=== PATIENT | male | born 1955 | race Caucasian/White ===

== ENCOUNTER → 2017-08-18 | Outpatient (CLI) | payer BC ==
[2017-08-18 09:21] LABS: Basophils # (A) 0.1 k/uL (0-0.2); Basophils % (A) 1 %; Eosinophils # (A) 0.3 k/uL (0-0.7); Eosinophils % (A) 5 %; HCT 45.8 % (39.0-53.0); HGB 15.9 gm/dL (13.0-17.5); Lymphocytes # (A) 2.1 k/uL (1.0-4.8); Lymphocytes % (A) 40 %; MCH 29.4 pg (25.0-35.0); MCHC 34.7 g/dL (31.0-37.0); MCV 84.5 fL (80.0-100.0); Mean Platelet Volume 7.2; Monocytes # (A) 0.4 k/uL (0-1.0); Monocytes % (A) 9 %; Neutrophils # (A) 2.1 k/uL (1.3-7.7); Neutrophils % (A) 41 %; Platelet Count 199 k/uL (150-450); RBC 5.42 m/uL (4.30-5.90); RDW 13.1 % (11.5-15.5); WBC 5.2 k/uL (3.8-10.6)
[2017-08-18 09:33] LABS: Albumin 4.4 g/dL (3.5-5.0); Calcium 9.8 mg/dL (8.4-10.2); Potassium 4.4 mmol/L (3.5-5.1); Total Bilirubin 0.6 mg/dL (0.2-1.3); Total Protein 7.4 g/dL (6.3-8.2)
[2017-08-18 09:49] LABS: T4, Free (Free Thyroxine) 0.86 ng/dL (0.78-2.19)
--- NOTE | 2017-08-18 10:19 | US ---
EXAMINATION TYPE: US kidneys/renal and bladder DATE OF EXAM: 08/18/2017 COMPARISON: NONE CLINICAL HISTORY: Chronic Kidney Stage 3 N18.3. EXAM MEASUREMENTS: Right Kidney: 10.5 x 5.3 x 5.6 cm Left Kidney: 10.9 x 6.3 x 5.0 cm Post Void Residual Volume: 14.95 mL Right Kidney: No hydronephrosis or masses seen Left Kidney: No hydronephrosis or masses seen Bladder: wnl Bilateral Jets seen: Yes Normal Post Void Residual: Yes IMPRESSION: 1. Normal renal ultrasound
[2017-08-18 10:44] LABS: Appearance,Urine Clear (Clear); Bilirubin,Urine Negative (Negative); Blood,Urine Negative (Negative); Color,Urine Colorless; Glucose,Urine (UA) Negative (Negative); Ketones,Urine Negative (Negative); Leukocyte Esterase,Urine Negative (Negative); Nitrite,Urine Negative (Negative); Protein,Urine Negative (Negative); Specific Gravity,Urine 1.002 (1.001-1.035); Urobilinogen,Urine <2.0 mg/dL (<2.0)
[2017-08-18 17:40] LABS: Hemoglobin A1C 5.1 % (4.0-6.0)
== END | disposition home or self-care (01) ==
LOC: RADUSWWP 08:29
PROVIDERS: ATTEND Family Medicine
DX: N18.3 Chronic kidney disease, stage 3 (moderate) (principal); N40.0 Benign prostatic hyperplasia without lower urinary tract symptoms; E78.2 Mixed hyperlipidemia
CPT/HCPCS: 36415; 76770; 80053; 80061; 81003; 82550; 82607; 83036; 83735; 84439; 84443; 85025

== ENCOUNTER 2020-08-09 15:36 | Inpatient (IN) | payer BC, MEDICARE ==
[2020-08-09] MEDS ORDERED: DEXAMETHASONE SOD PHOSPHATE 10 MG/ML 1 ML VIAL IV STA (15:45)
[2020-08-09] MEDS ORDERED: ACETAMINOPHEN TAB 500 MG TAB PO STA (16:04)
--- NOTE | 2020-08-09 16:23 | ED ---
General Adult HPI - General Chief complaint: Shortness of Breath Stated complaint: Shortness of Breath Time Seen by Provider: 08/09/20 15:38 Source: patient Mode of arrival: EMS Limitations: no limitations - History of Present Illness Initial comments: Dictation was produced using [employer] dictation software. please excuse any grammatical, word or spelling errors. This patient was cared for during a federal and state declared state of emergency secondary to Covid 19 Chief Complaint: 65-year-old male with no significant past medical history presents to the emergency department for covid symptoms History of Present Illness: 65-year-old male. For the last 10 days patient has been having Covid 19-type symptoms. Patient states that he has some shortness of breath generalized weakness and constitutional symptoms. He has no medical comorbidities. He does not take any medications on a regular basis. He is not sure how he got the disease. He has no pain complaints. EMS was called and noted that he was hypoxic. He was placed on supplemental oxygen. Patient does not use home O2. The ROS documented in this emergency department record has been reviewed and confirmed by me. Those systems with pertinent positive or negative responses have been documented in the HPI. All other systems are other negative and/or noncontributory. PHYSICAL EXAM: General Impression: Alert and oriented x3, not in acute distress HEENT: Normocephalic atraumatic, extra-ocular movements intact, pupils equal and reactive to light bilaterally, mucous membranes moist. Cardiovascular: Heart regular rate and rhythm Chest: Able to complete full sentences, no retractions, no tachypnea Abdomen: abdomen soft, non-tender, non-distended, no organomegaly Musculoskeletal: Pulses present and equal in all extremities, no peripheral edema Motor: no focal deficits noted Neurological: CN II-XII grossly intact, no focal motor or sensory deficits noted Skin: Intact with no visualized rashes Psych: Normal affect and mood ED course: 65-year-old male presents to the emergency department for clinical presentation consistent with Covid 19. He is hypoxic. As upon arrival shows 87% on room air while at rest. Temperature is 103.3. EKG interpretation: Ventricular rate 81, normal sinus rhythm, NE interval 150, QRS 90, QTC 418. No NE prolongation, no QTC prolongation, no EKG for comparison. There are T-wave inversions in lead 3 and aVF. Overall this EKG is nonspecific. Laboratory evaluation obtained. No leukocytosis. Lymphocyte opinions 0.7. Coag panel is negative. D-dimer is 1.01. Metabolic panel shows findings within acceptable range. Coronavirus test is positive. X-ray and CT angios the chest shows no signs of pulmonary embolus however there is diffuse bilateral patchy ground glass opacities consistent with Covid pneumonia. he'll be admitted to the hospital. He requires supplemental oxygen. Case was discussed with Dr. Spangler of [facility] who is willing to accept patients care. Patient is well-appearing and satting well with 2 L nasal cannula while at rest. - Related Data Home Medications Medication Instructions Recorded Confirmed No Known Home Medications 08/09/20 08/09/20 Allergies Allergy/AdvReac Type Severity Reaction Status Date / Time No Known Allergies Allergy Verified 08/09/20 17:07 Review of Systems ROS Statement: Those systems with pertinent positive or pertinent negative responses have been documented in the HPI. ROS Other: All systems not noted in ROS Statement are negative. Past Medical History Past Medical History: No Reported History History of Any Multi-Drug Resistant Organisms: None Reported Past Surgical History: Orthopedic Surgery Additional Past Surgical History / Comment(s): bilateral knee surgery Past Psychological History: No Psychological Hx Reported Smoking Status: Never smoker Past Alcohol Use History: None Reported Past Drug Use History: None Reported General Exam Limitations: no limitations Course Vital Signs 08/09/20 08/09/20 08/09/20 15:39 16:00 17:00 Temperature 103.3 F H Pulse Rate 81 77 73 Respiratory 24 24 24 Rate Blood Pressure 127/80 121/81 123/82 O2 Sat by Pulse 87 L 93 L 95 Oximetry 08/09/20 17:38 Temperature 99.5 F Pulse Rate Respiratory Rate Blood Pressure O2 Sat by Pulse Oximetry Medical Decision Making - Lab Data Result diagrams: 08/09/20 16:17 08/09/20 16:17 Lab Results 08/09/20 08/09/20 08/09/20 Range/Units 16:11 16:17 16:17 WBC 4.6 (3.8-10.6) k/uL RBC 4.84 (4.30-5.90) m/uL Hgb 15.3 (13.0-17.5) gm/dL Hct 41.5 (39.0-53.0) % MCV 85.8 (80.0-100.0) fL MCH 31.7 (25.0-35.0) pg MCHC 36.9 (31.0-37.0) g/dL RDW 12.6 (11.5-15.5) % Plt Count 133 L (150-450) k/uL MPV 8.5 Neutrophils % 81 % Lymphocytes % 14 % Monocytes % 2 % Eosinophils % 0 % Basophils % 0 % Neutrophils # 3.7 (1.3-7.7) k/uL Lymphocytes # 0.7 L (1.0-4.8) k/uL Monocytes # 0.1 (0-1.0) k/uL Eosinophils # 0.0 (0-0.7) k/uL Basophils # 0.0 (0-0.2) k/uL PT 10.0 (9.0-12.0) sec INR 0.9 (<1.2) APTT 26.1 (22.0-30.0) sec D-Dimer 1.01 H (<0.60) mg/L FEU Sodium (137-145) mmol/L Potassium (3.5-5.1) mmol/L Chloride (98-107) mmol/L Carbon Dioxide (22-30) mmol/L Anion Gap mmol/L BUN (9-20) mg/dL Creatinine (0.66-1.25) mg/dL Est GFR (CKD-EPI)AfAm (>60 ml/min/1.73 sqM) Est GFR (CKD-EPI)NonAf (>60 ml/min/1.73 sqM) Glucose (74-99) mg/dL Plasma Lactic Acid Sampson (0.7-2.0) mmol/L Calcium (8.4-10.2) mg/dL Magnesium (1.6-2.3) mg/dL Total Bilirubin (0.2-1.3) mg/dL AST (17-59) U/L ALT (4-49) U/L Alkaline Phosphatase (38-126) U/L Troponin I (0.000-0.034) ng/mL C-Reactive Protein (<10.0) mg/L Total Protein (6.3-8.2) g/dL Albumin (3.5-5.0) g/dL Coronavirus (PCR) Detected A (Not Detectd) 08/09/20 08/09/20 08/09/20 Range/Units 16:17 16:17 16:17 WBC (3.8-10.6) k/uL RBC (4.30-5.90) m/uL Hgb (13.0-17.5) gm/dL Hct (39.0-53.0) % MCV (80.0-100.0) fL MCH (25.0-35.0) pg MCHC (31.0-37.0) g/dL RDW (11.5-15.5) % Plt Count (150-450) k/uL MPV Neutrophils % % Lymphocytes % % Monocytes % % Eosinophils % % Basophils % % Neutrophils # (1.3-7.7) k/uL Lymphocytes # (1.0-4.8) k/uL Monocytes # (0-1.0) k/uL Eosinophils # (0-0.7) k/uL Basophils # (0-0.2) k/uL PT (9.0-12.0) sec INR (<1.2) APTT (22.0-30.0) sec D-Dimer (<0.60) mg/L FEU Sodium 132 L (137-145) mmol/L Potassium 4.7 (3.5-5.1) mmol/L Chloride 99 (98-107) mmol/L Carbon Dioxide 27 (22-30) mmol/L Anion Gap 6 mmol/L BUN 31 H (9-20) mg/dL Creatinine 1.35 H (0.66-1.25) mg/dL Est GFR (CKD-EPI)AfAm 63 (>60 ml/min/1.73 sqM) Est GFR (CKD-EPI)NonAf 54 (>60 ml/min/1.73 sqM) Glucose 102 H (74-99) mg/dL Plasma Lactic Acid Sampson 0.9 (0.7-2.0) mmol/L Calcium 8.3 L (8.4-10.2) mg/dL Magnesium 2.3 (1.6-2.3) mg/dL Total Bilirubin 0.8 (0.2-1.3) mg/dL AST 62 H (17-59) U/L ALT 26 (4-49) U/L Alkaline Phosphatase 41 (38-126) U/L Troponin I 0.017 (0.000-0.034) ng/mL C-Reactive Protein 57.2 H (<10.0) mg/L Total Protein 6.5 (6.3-8.2) g/dL Albumin 3.6 (3.5-5.0) g/dL Coronavirus (PCR) (Not Detectd) Disposition Clinical Impression: COVID-19, Hypoxia Disposition: ADMITTED IP TO THIS HOSP Condition: Fair Decision Time: 18:14
[2020-08-09 16:26] LABS: Basophils % (A) 0 %; Eosinophils % (A) 0 %; HCT 41.5 % (39.0-53.0); HGB 15.3 gm/dL (13.0-17.5); Lymphocytes # (A) 0.7 k/uL (1.0-4.8); Lymphocytes % (A) 14 %; MCH 31.7 pg (25.0-35.0); MCHC 36.9 g/dL (31.0-37.0); MCV 85.8 fL (80.0-100.0); Mean Platelet Volume 8.5; Monocytes # (A) 0.1 k/uL (0-1.0); Monocytes % (A) 2 %; Neutrophils # (A) 3.7 k/uL (1.3-7.7); Neutrophils % (A) 81 %; Platelet Count 133 k/uL (150-450); RBC 4.84 m/uL (4.30-5.90); RDW 12.6 % (11.5-15.5); WBC 4.6 k/uL (3.8-10.6)
[2020-08-09 16:41] LABS: Albumin 3.6 g/dL (3.5-5.0); C Reactive Protein 57.2 mg/L (<10.0); Calcium 8.3 mg/dL (8.4-10.2); Magnesium 2.3 mg/dL (1.6-2.3); Potassium 4.7 mmol/L (3.5-5.1); Total Bilirubin 0.8 mg/dL (0.2-1.3); Total Protein 6.5 g/dL (6.3-8.2)
--- NOTE | 2020-08-09 16:42 | XR ---
EXAMINATION TYPE: XR chest 1V portable DATE OF EXAM: 08/09/2020 COMPARISON: NONE HISTORY: Shortness of breath. TECHNIQUE: Single frontal view of the chest is obtained. FINDINGS: Bilateral diffuse moderate patchy opacities. No pleural effusion, or pneumothorax seen. T he cardiac silhouette size is within normal limits. The osseous structures are intact. IMPRESSION: Bilateral infiltrates.
[2020-08-09 16:54] LABS: INR 0.9 (<1.2); Partial Thromboplastin Time 26.1 sec (22.0-30.0)
[2020-08-09 16:56] LABS: D-Dimer 1.01 mg/L FEU (<0.60)
[2020-08-09] MEDS ORDERED: ACETAMINOPHEN TAB 325 MG TAB PO PRN (17:45)
[2020-08-09] MEDS ORDERED: ONDANSETRON 4 MG/2 ML VIAL IVP PRN (17:45)
[2020-08-09] MEDS ORDERED: NALOXONE 0.4 MG/ML 1 ML VIAL IV PRN ×2 (17:45→18:38)
--- NOTE | 2020-08-09 17:51 | CT ---
EXAMINATION TYPE: CT angio chest DATE OF EXAM: 08/09/2020 5:39 PM COMPARISON: Same-day radiograph. HISTORY: Positive d-dimer, Covid +. SOB. CT DLP: 341.9 mGycm Automated exposure control for dose reduction was used. CONTRAST: CTA scan of the thorax is performed with IV Contrast, patient injected with 80 mL of Isovue 370, pulm onary embolism protocol. MIP images are created and reviewed. FINDINGS: LUNGS: There are bilateral diffuse moderate to marked patchy groundglass opacities. No pleural effusi on or pneumothorax. There is an incidental 4 mm right middle lobe nodule. MEDIASTINUM: There is satisfactory enhancement of the pulmonary artery and its branches, there is no CT evidence for pulmonary embolism. There are scattered borderline to mildly enlarged mediastinal an d hilar lymph nodes, may be reactive. Mild cardiomegaly without pericardial effusion is seen. OTHER: No additional significant abnormality is seen. IMPRESSION: BILATERAL DIFFUSE PATCHY GROUND GLASS OPACITIES, CONSISTENT WITH HISTORY OF COVID PNEUMONIA. INCIDENTAL 4 MM RIGHT MIDDLE LOBE NODULE. ATTENTION ON FOLLOW-UP. NO ACUTE PE.
[2020-08-09] MEDS ORDERED: SODIUM CHLORIDE 0.9% 1,000 ML IV STA (18:42)
--- NOTE | 2020-08-09 18:42 | P.HPIM ---
History of Present Illness H&P Date: 08/09/20 Chief Complaint: weakness 65-year-old male with no significant past medical history presents to the emergency department for sob, general weakness, fatigue, fever and chills. Symptoms started 1 week ago. His is sick with covid. He has no medical comorbidities. He does not take any medications on a regular basis. No pain. EMS was called and noted that he was hypoxic. He was placed on supplemental oxygen. Patient does not use home O2. Evaluation in the ER showed sats 87% on room air while at rest. Temperature was 103.3. Labs showed no leukocytosis. Lymphopenia 0.7. Coag panel is negative. Metabolic panel shows findings within acceptable range. Coronavirus test is positive. X-ray and CT angios the chest shows no signs of pulmonary embolus however there is diffuse bilateral patchy ground glass opacities consistent with Covid pneumonia. He is currently well-appearing and satting well with 2 L nasal cannula while at rest. Review of Systems complete review of system performed, pertinent positives per HPI otherwise negative Past Medical History Past Medical History: No Reported History History of Any Multi-Drug Resistant Organisms: None Reported Past Surgical History: Orthopedic Surgery Additional Past Surgical History / Comment(s): bilateral knee surgery Past Psychological History: No Psychological Hx Reported Smoking Status: Never smoker Past Alcohol Use History: None Reported Past Drug Use History: None Reported Medications and Allergies Home Medications Medication Instructions Recorded Confirmed Type No Known Home Medications 08/09/20 08/09/20 History Allergies Allergy/AdvReac Type Severity Reaction Status Date / Time No Known Allergies Allergy Verified 08/09/20 17:07 Physical Exam Vitals: Vital Signs Temp Pulse Resp BP Pulse Ox 08/09/20 17:38 99.5 F 08/09/20 17:00 73 24 123/82 95 08/09/20 16:00 77 24 121/81 93 L 08/09/20 15:39 103.3 F H 81 24 127/80 87 L Intake and Output 08/09/20 08/09/20 08/09/20 06:59 14:59 22:59 Other: Weight 80.739 kg Constitutional: No acute distress, conversant, pleasant Eyes:Anicteric sclerae, moist conjunctiva, no lid-lag, PERRLA, ENMT: Oropharynx clear, no erythema, exudates Neck: Supple, FROM, no masses, or JVD, No carotid bruits, No thyromegaly Lungs: Clear to auscultation, Clear to percussion, Normal respiratory effort, no accessory muscle use Cardiovascular: Heart regular in rate and rhythm, No murmurs, gallops, or rubs, No peripheral edema Abdominal: Soft, Nontender, no guarding, rebound or rigidity, Normoactive bowel sounds, No hepatomegaly, No splenomegaly, No palpable mass Skin: Normal temperature, tone, texture, turgor, no induration, No subcutaneous nodules, No rash, lesions, No ulcers Extremities: No digital cyanosis, No clubbing, Pedal pulses intact and symmetrical, Radial pulses intact and symmetrical, No calf tenderness Psychiatric: Alert and oriented to person, place and time, appropriate affect, intact judgement Neuro: Muscles Strength 5/5 in all 4 extremities, Sensation to light touch grossly present throughout, Cranial nerves II-XII grossly intact, no focal sensory deficits Results CBC & Chem 7: 08/09/20 16:17 08/09/20 16:17 Labs: Abnormal Lab Results - Last 24 Hours (Table) 08/09/20 08/09/20 08/09/20 Range/Units 16:11 16:17 16:17 Plt Count 133 L (150-450) k/uL Lymphocytes # 0.7 L (1.0-4.8) k/uL D-Dimer 1.01 H (<0.60) mg/L FEU Sodium (137-145) mmol/L BUN (9-20) mg/dL Creatinine (0.66-1.25) mg/dL Glucose (74-99) mg/dL Calcium (8.4-10.2) mg/dL AST (17-59) U/L C-Reactive Protein (<10.0) mg/L Coronavirus (PCR) Detected A (Not Detectd) 08/09/20 Range/Units 16:17 Plt Count (150-450) k/uL Lymphocytes # (1.0-4.8) k/uL D-Dimer (<0.60) mg/L FEU Sodium 132 L (137-145) mmol/L BUN 31 H (9-20) mg/dL Creatinine 1.35 H (0.66-1.25) mg/dL Glucose 102 H (74-99) mg/dL Calcium 8.3 L (8.4-10.2) mg/dL AST 62 H (17-59) U/L C-Reactive Protein 57.2 H (<10.0) mg/L Coronavirus (PCR) (Not Detectd) Assessment and Plan Plan: Acute covid pneumonia Start decadron 6mg IV daily Pulm consult Decision regarding other treatments according to pulm consult Acute hypoxic respiratory failure Sec to above Currently doing well on NC Monitor pulse ox Acute sepsis Sec to covid IV fluids Lactic acid check Hyponatremia and JAVED Likely sec to dehydration and covid IV fluids DVT prophylaxis Lovenox s.q Admitted to inpatient expected length of stay more than 2 midnights.
[2020-08-09] MEDS: SODIUM CHLORIDE 0.9% 1,000 ML IV SCH (20:14)
[2020-08-09] MEDS: ENOXAPARIN 40 MG/0.4 ML SYRINGE SQ SCH (21:16)
[2020-08-10 08:45] LABS: HCT 45.4 % (39.6-50.0); MCH 29.9 pg (27.0-32.0); MCV 90.4 fL (80.0-97.0); Mean Platelet Volume 11.8 fL (9.5-12.2); Platelet Count 142 X 10*3/uL (140-440); RBC 5.02 X 10*6/uL (4.40-5.60); RDW 12.9 % (11.5-14.5); WBC 3.69 X 10*3/uL (4.50-10.00)
[2020-08-10 09:15] LABS: African American GFR (CKD) 47.6 (60.0-200.0); Albumin 3.8 g/dL (3.80-4.90); Albumin/Globulin Ratio 1.46 (1.60-3.17); Anion Gap 7.9 mmol/L (4.00-12.00); BUN/Creat Ratio 26.47 Ratio (12.00-20.00); Calcium 8.6 mg/dL (8.7-10.3); Carbon Dioxide 28.1 mmol/L (21.6-31.8); Globulin 2.6 g/dL (1.6-3.3); Non-African American GFR(CKD) 41.1 (60.0-200.0); Phosphorus 6.7 mg/dL (2.4-5.1); Potassium 5.2 mmol/L (3.5-5.5); Total Bilirubin 0.8 mg/dL (0.3-1.2); Total Protein 6.4 g/dL (6.2-8.2)
[2020-08-10] MEDS: PANTOPRAZOLE 40 MG/10 ML VIAL IV SCH (10:29)
[2020-08-10] MEDS: DEXAMETHASONE SOD PHOSPHATE 10 MG/ML 1 ML VIAL IV SCH (10:31)
[2020-08-10] MEDS: ENOXAPARIN 40 MG/0.4 ML SYRINGE SQ SCH (10:33)
[2020-08-10 10:47] LABS: Basophils # (A) 0.01 X 10*3/uL (0.00-0.10); Basophils % (A) 0.3 %; Eosinophils # (A) 0 X 10*3/uL (0.04-0.35); Eosinophils % (A) 0 %; Lymphocytes # (A) 0.87 X 10*3/uL (0.90-5.00); Lymphocytes % (A) 23.6 %; Monocytes # (A) 0.11 X 10*3/uL (0.20-1.00); Neutrophils # (A) 2.67 X 10*3/uL (1.80-7.70); Neutrophils % (A) 72.3 %
--- NOTE | 2020-08-10 11:24 | P.CNPUL ---
History of Present Illness Consult date: 08/10/20 Requesting physician: Lauren Howell Reason for consult: dyspnea (Continue S), cough, hypoxemia, pneumonia, abnormal CXR/CT Chief complaint: Anorexia, fatigue, joint pain, weakness, shortness of breath. History of present illness: This is a 65-year-old male, there hasn't been feeling well for at least 2 weeks. He complains initially of fatigue, weakness, joint pain, and anorexia. The pa tient is awake, he is complaining about being short of breath. The patient's appetite has been poor. He has not been really eating or drinking very much at all. The patient was in ER, room #1 when I saw him. He was not receiving any IV fluids. He was on O2 at 3 L by nasal cannula. Again not receiving any IV fluids. Used to see a doctor in the area but has not seen a doctor for some time. He is otherwise pretty healthy. He was seen in the emergency room by Dr. Elena. White count was 3.69, hemoglobin 15, hematocrit 45.4, and platelet count 142,000. D-dimer was 1.01. PT, INR, and PTT were normal. Sodium 133, potassium 5.2, chloride 97, CO2 28, anion gap 8, BUN 45, and creatinine 1.7. The patient's C-reactive protein was 57.2. He tested positive for calvillo virus on August 09. Chest x-ray showed bilateral multifocal infiltrates consistent with the diagnosis of COVID 19 pneumonia. Computed tomography scan showed typical findings with diffuse bilateral groundglass opacities. There was no acute pulmonary embolism. Review of Systems REVIEW OF SYSTEMS: CONSTITUTIONAL: Fatigue, weakness, joint pain, anorexia, decreased appetite. Also fever. NEUROLOGIC: [ Negative.] HEENT: [ Negative.] CARDIAC: Shortness of breath. Nonproductive cough. PULMONARY: Shortness of breath. Nonproductive cough. GI: Anorexia with decreased oral intake. : [Negative.] RHEUMATOLOGIC: [ Negative.] IMMUNOLOGIC: [ Negative.] ENDOCRINE: [Negative. ] DERMATOLOGIC: [Negative.] Past Medical History Past Medical History: No Reported History History of Any Multi-Drug Resistant Organisms: None Reported Past Surgical History: Orthopedic Surgery Additional Past Surgical History / Comment(s): bilateral knee surgery Past Psychological History: No Psychological Hx Reported Smoking Status: Never smoker Past Alcohol Use History: None Reported Past Drug Use History: None Reported Medications and Allergies Home Medications Medication Instructions Recorded Confirmed Type No Known Home Medications 08/09/20 08/09/20 History Allergies Allergy/AdvReac Type Severity Reaction Status Date / Time No Known Allergies Allergy Verified 08/09/20 17:07 Physical Exam Osteopathic Statement: *. No significant issues noted on an osteopathic structural exam other than those noted in the History and Physical/Consult. Vitals: Vital Signs Temp Pulse Resp BP Pulse Ox 08/10/20 10:30 65 18 131/90 92 L 08/10/20 06:00 97.7 F 61 20 133/84 92 L 08/10/20 01:00 47 L 24 115/85 92 L 08/09/20 23:00 52 L 20 95/66 92 L 08/09/20 19:00 59 L 18 117/82 93 L 08/09/20 18:00 61 24 113/77 92 L 08/09/20 17:38 99.5 F 08/09/20 17:00 73 24 123/82 95 08/09/20 16:00 77 24 121/81 93 L 08/09/20 15:39 103.3 F H 81 24 127/80 87 L Intake and Output 08/09/20 08/10/20 08/10/20 22:59 06:59 14:59 Other: Weight 80.739 kg No acute distress, oriented 3. Currently on 3 L nasal cannula. No audible wheezing or use of accessory muscles. HEENT examination is grossly unremarkable. Mucous membranes are moist. No oral lesions. Neck supple. Full range of motion. No adenopathy thyromegaly or neck vein distention. Cardiovascular examination reveals regular rhythm rate. S1-S2 normal. No S3 or S4. No discernible murmur noted. Heart rate 65 bpm. Lungs reveal bilateral coarse rhonchi. Bibasilar crackles appreciated. No wheezes. Breath sounds equal bilaterally. Abdomen soft bowel sounds are heard. No masses or tenderness. Extremities are intact. No cyanosis clubbing or edema. Skin is without rash or lesion. Neurologic examination is brief but nonfocal. Results - Laboratory Findings CBC and BMP: 08/10/20 05:15 08/10/20 05:15 PT/INR, D-dimer PT 10.0 sec (9.0-12.0) 08/09/20 16:17 INR 0.9 (<1.2) 08/09/20 16:17 D-Dimer 1.01 mg/L FEU (<0.60) H 08/09/20 16:17 Abnormal lab findings: Abnormal Labs 08/09/20 08/09/20 08/09/20 16:11 16:17 16:17 WBC Plt Count 133 L Lymphocytes # 0.7 L Monocytes # Eosinophils # D-Dimer 1.01 H Sodium BUN Creatinine Est GFR (CKD-EPI)AfAm Est GFR (CKD-EPI)NonAf BUN/Creatinine Ratio Glucose Calcium Phosphorus Magnesium AST Alkaline Phosphatase C-Reactive Protein Albumin/Globulin Ratio Coronavirus (PCR) Detected A 08/09/20 08/10/20 08/10/20 16:17 05:15 05:15 WBC 3.69 L Plt Count Lymphocytes # 0.87 L Monocytes # 0.11 L Eosinophils # 0 L D-Dimer Sodium 132 L 133 L BUN 31 H 45.0 H Creatinine 1.35 H 1.7 H Est GFR (CKD-EPI)AfAm 47.6 L Est GFR (CKD-EPI)NonAf 41.1 L BUN/Creatinine Ratio 26.47 H Glucose 102 H 133 H Calcium 8.3 L 8.6 L Phosphorus 6.7 H Magnesium 3.0 H AST 62 H 50 H Alkaline Phosphatase 37 L C-Reactive Protein 57.2 H Albumin/Globulin Ratio 1.46 L Coronavirus (PCR) - Diagnostic Findings Chest x-ray: image reviewed CT scan - chest: image reviewed Assessment and Plan Assessment: Acute hypoxemic respiratory failure secondary to COVID 19 pneumonia/pneumonitis. Prior history of bilateral knee surgery. Lifelong nonsmoker. No other significant medical history. Plan: Plan dated 08/10/2020. The patient should be on Decadron, 6 mg daily for a total of 10 days. He is outside the window for REM. The patient also should be receiving vitamin C, vitamin D3, and zinc. Additional recommendations and suggestions are forthcoming. Finally, the patient should get Lovenox. Repeat chest x-ray and inflammatory markers should be done about every 2 or 3 days. We will continue to follow the patient closely and make recommendations were appropriate. Prognosis is guarded. His chest x-ray and computed tomography scan look much worse and the patient looks clinically. Time with Patient: Greater than 30
--- NOTE | 2020-08-10 16:48 | P.PN ---
Subjective Progress Note Date: 08/10/20 Principal diagnosis: sob Patient is still hypoxic, still requiring 2 L of nasal cannula, sats are currently in the lower 90s on the oxygen. He is feeling better overall. No nausea or vomiting. No fevers. Objective - Vital Signs Vital signs: Vital Signs Temp 97.7 F 08/10/20 06:00 Pulse 65 08/10/20 10:30 Resp 18 08/10/20 10:30 BP 131/90 08/10/20 10:30 Pulse Ox 92 L 08/10/20 10:30 Intake & Output 08/09/20 08/10/20 08/10/20 18:59 06:59 18:59 Weight 80.739 kg - Exam Constitutional: No acute distress, conversant, pleasant Eyes:Anicteric sclerae, moist conjunctiva, no lid-lag, PERRLA, ENMT: Oropharynx clear, no erythema, exudates Neck: Supple, FROM, no masses, or JVD, No carotid bruits, No thyromegaly Lungs: Clear to auscultation, Clear to percussion, Normal respiratory effort, no accessory muscle use Cardiovascular: Heart regular in rate and rhythm, No murmurs, gallops, or rubs, No peripheral edema Abdominal: Soft, Nontender, no guarding, rebound or rigidity, Normoactive bowel sounds, No hepatomegaly, No splenomegaly, No palpable mass Skin: Normal temperature, tone, texture, turgor, no induration, No subcutaneous nodules, No rash, lesions, No ulcers Extremities: No digital cyanosis, No clubbing, Pedal pulses intact and sym metrical, Radial pulses intact and symmetrical, No calf tenderness Psychiatric: Alert and oriented to person, place and time, appropriate affect, intact judgement Neuro: Muscles Strength 5/5 in all 4 extremities, Sensation to light touch grossly present throughout, Cranial nerves II-XII grossly intact, no focal sensory deficits - Labs CBC & Chem 7: 08/10/20 05:15 08/10/20 05:15 Labs: Abnormal Lab Results - Last 24 Hours (Table) 08/09/20 08/10/20 08/10/20 Range/Units 16:17 05:15 05:15 WBC 3.69 L (4.50-10.00) X 10*3/uL Lymphocytes # 0.87 L (0.90-5.00) X 10*3/uL Monocytes # 0.11 L (0.20-1.00) X 10*3/uL Eosinophils # 0 L (0.04-0.35) X 10*3/uL D-Dimer 1.01 H (<0.60) mg/L FEU Sodium 133 L (135-145) mmol/L BUN 45.0 H (9.0-27.0) mg/dL Creatinine 1.7 H (0.6-1.5) mg/dL Est GFR (CKD-EPI)AfAm 47.6 L (60.0-200.0) Est GFR (CKD-EPI)NonAf 41.1 L (60.0-200.0) BUN/Creatinine Ratio 26.47 H (12.00-20.00) Ratio Glucose 133 H (70-110) mg/dL Calcium 8.6 L (8.7-10.3) mg/dL Phosphorus 6.7 H (2.4-5.1) mg/dL Magnesium 3.0 H (1.5-2.4) mg/dL AST 50 H (14-35) U/L Alkaline Phosphatase 37 L (41-126) U/L Albumin/Globulin Ratio 1.46 L (1.60-3.17) g/dL Assessment and Plan Plan: Acute covid pneumonia Continue decadron 6mg IV daily Pulm following Decision regarding other treatments according to pulm consult Acute hypoxic respiratory failure Sec to above Currently doing well on NC Monitor pulse ox Acute sepsis Sec to covid IV fluids Lactic acid okay Hyponatremia and JAVED Likely sec to dehydration and covid IV fluids DVT prophylaxis Lovenox s.q Anticipated discharge: 2-3 days Disposition: Home
--- NOTE | 2020-08-10 20:42 | P.EN ---
Informed by the RN that the patient wishes to leave AMA. Patient seen at the bedside. He notes that he hasn't been able to get a restful night sleep at the hospital and wishes to sleep in his bed at home. He notes that he has a pulse-ox at home and that he will monitor his SpO2 levels closely. He also notes he will take the full course of the Dexamethasone. Discussed the risks of leaving AMA in great detail. The patient verbalized understanding and signed the paperwork and left AMA.
[2020-08-10] MEDS ORDERED: MELATONIN 5 MG TABLET PO PRN (21:17)
[2020-08-10] MEDS: SODIUM CHLORIDE 0.9% 1,000 ML IV SCH (22:17)
[2020-08-11] MEDS: DEXAMETHASONE SOD PHOSPHATE 10 MG/ML 1 ML VIAL IV SCH (07:58)
[2020-08-11] MEDS: ENOXAPARIN 40 MG/0.4 ML SYRINGE SQ SCH (07:58)
[2020-08-11] MEDS: ASCORBIC ACID 500 MG TAB PO SCH (07:58)
[2020-08-11] MEDS: PANTOPRAZOLE 40 MG/10 ML VIAL IV SCH (07:58)
[2020-08-11] MEDS: CHOLECALCIFEROL 25 MCG (1000 IU) TABLET PO SCH (07:58)
[2020-08-11] MEDS: ZINC SULFATE 220 MG CAP PO SCH (07:58)
--- NOTE | 2020-08-11 11:27 | P.PN ---
Subjective Progress Note Date: 08/11/20 Principal diagnosis: Shortness of breath. This is a 65-year-old male, there hasn't been feeling well for at least 2 weeks. He complains initially of fatigue, weakness, joint pain, and anorexia. The patient is awake, he is complaining about being short of breath. The patient's appetite has been poor. He has not been really eating or drinking very much at all. The patient was in ER, room #1 when I saw him. He was not receiving any IV fluids. He was on O2 at 3 L by nasal cannula. Again not receiving any IV fluids. Used to see a doctor in the area but has not seen a doctor for some time. He is otherwise pretty healthy. He was seen in the emergency room by Dr. Elena. White count was 3.69, hemoglobin 15, hematocrit 45.4, and platelet count 142,000. D-dimer was 1.01. PT, INR, and PTT were normal. Sodium 133, potassium 5.2, chloride 97, CO2 28, anion gap 8, BUN 45, and creatinine 1.7. The patient's C-reactive protein was 57.2. He tested positive for calvillo virus on August 09. Chest x-ray showed bilateral multifocal infiltrates consistent with the diagnosis of COVID 19 pneumonia. Computed tomography scan showed typical findings with diffuse bilateral groundglass opacities. There was no acute pulmonary embolism. Progress note dated 08/11/2020. 65-year-old male, that we saw yesterday in consultation. He complained of 2 weeks with increasing shortness of breath, fatigue, weakness, joint pain, and anorexia. Currently, the patient's on 4 L nasal cannula. He's not receiving any IV fluids. He is short of breath. He states he feels more short of breath today than he did yesterday. The patient currently does not have a primary care physician. There is no new laboratory data on this patient today. Computed tomography scan showed typical findings with diffuse bilateral groundglass opacities. There is no evidence of pulmonary embolism. Objective - Vital Signs Vital signs: Vital Signs Temp 97.8 F 08/11/20 06:00 Pulse 78 08/11/20 08:03 Resp 18 08/11/20 08:03 BP 114/99 08/11/20 08:03 Pulse Ox 94 L 08/11/20 08:03 - Exam No acute distress, oriented 3. Currently on 4 L nasal cannula. No audible wheezing or use of accessory muscles. HEENT examination is grossly unremarkable. Mucous membranes are moist. No oral lesions. Neck supple. Full range of motion. No adenopathy thyromegaly or neck vein distention. Cardiovascular examination reveals regular rhythm rate. S1-S2 normal. No S3 or S4. No discernible murmur noted. Heart rate 78 bpm. Lungs reveal bilateral coarse rhonchi. Bibasilar crackles appreciated. No wheezes. Breath sounds equal bilaterally. Abdomen soft bowel sounds are heard. No masses or tenderness. Extremities are intact. No cyanosis clubbing or edema. Skin is without rash or lesion. Neurologic examination is brief but nonfocal. - Labs CBC & Chem 7: 08/10/20 05:15 08/10/20 05:15 Assessment and Plan Assessment: Acute hypoxemic respiratory failure secondary to COVID 19 pneumonia/pneumonitis. Prior history of bilateral knee surgery. Lifelong nonsmoker. No other significant medical history. Plan: Plan dated 08/10/2020. The patient should be on Decadron, 6 mg daily for a total of 10 days. He is outside the window for REM. The patient also should be receiving vitamin C, vitamin D3, and zinc. Additional recommendations and suggestions are forthcoming. Finally, the patient should get Lovenox. Repeat chest x-ray and inflammatory markers should be done about every 2 or 3 days. We will continue to follow the patient closely and make recommendations were appropriate. Prognosis is guarded. His chest x-ray and computed tomography scan look much worse and the patient looks clinically. Plan dated 08/11/2020. The patient was outside the window for REM. The patient should be on Decadron 6 mg a day for 10 days. In addition, the patient should receive the usual vitamins, including vitamin C, vitamin D3, and zinc. Finally, the patient should get Lovenox. Clinically, he seems a bit more short of breath s ubjectively today than he did yesterday. The patient's oxygen requirement went up 1 L from yesterday. He's not receiving any IV fluids. Additional recommendations and suggestions are forthcoming. Prognosis is guarded. We will continue to follow this patient with you. Time with Patient: Less than 30
--- NOTE | 2020-08-11 14:34 | P.PN ---
Subjective Progress Note Date: 08/11/20 Principal diagnosis: sob Patient's oxygen requirement went up to 4 L from low flow nasal cannula. He denies any shortness of breath. Has occasional cough. No fevers or chills. Objective - Vital Signs Vital signs: Vital Signs Temp 98.8 F 08/11/20 11:23 Pulse 78 08/11/20 11:23 Resp 18 08/11/20 11:23 BP 122/89 08/11/20 11:23 Pulse Ox 93 L 08/11/20 11:23 - Exam Constitutional: No acute distress, conversant, pleasant Eyes:Anicteric sclerae, moist conjunctiva, no lid-lag, PERRLA, ENMT: Oropharynx clear, no erythema, exudates Neck: Supple, FROM, no masses, or JVD, No carotid bruits, No thyromegaly Lungs: Clear to auscultation, Clear to percussion, Normal respiratory effort, no accessory muscle use Cardiovascular: Heart regular in rate and rhythm, No murmurs, gallops, or rubs, No peripheral edema Abdominal: Soft, Nontender, no guarding, rebound or rigidity, Normoactive bowel sounds, No hepatomegaly, No splenomegaly, No palpable mass Skin: Normal temperature, tone, texture, turgor, no induration, No subcutaneous nodules, No rash, lesions, No ulcers Extremities: No digital cyanosis, No clubbing, Pedal pulses intact and symmetrical, Radial pulses intact and symmetrical, No calf tenderness Psychiatric: Alert and oriented to person, place and time, appropriate affect, intact judgement Neuro: Muscles Strength 5/5 in all 4 extremities, Sensation to light touch grossly present throughout, Cranial nerves II-XII grossly intact, no focal se nsory deficits - Labs CBC & Chem 7: 08/10/20 05:15 08/10/20 05:15 Assessment and Plan Plan: Acute covid pneumonia Continue decadron 6mg IV daily Pulm following Acute hypoxic respiratory failure Sec to above Currently doing well on NC Monitor pulse ox Acute sepsis Sec to covid IV fluids Lactic acid okay Hyponatremia and JAVED Likely sec to dehydration and covid IV fluids DVT prophylaxis Lovenox s.q Anticipated discharge: 2-3 days Disposition: Home
[2020-08-11] MEDS: SODIUM CHLORIDE 0.9% 1,000 ML IV SCH (22:45)
[2020-08-12] MEDS ORDERED: HYDROXYCHLOROQUINE SULFATE 200 MG TAB PO SCH (09:15)
[2020-08-12] MEDS: ASCORBIC ACID 500 MG TAB PO SCH (09:17)
[2020-08-12] MEDS: PANTOPRAZOLE 40 MG/10 ML VIAL IV SCH (09:17)
[2020-08-12] MEDS: amLODIPine 5 MG TAB PO SCH (09:17)
[2020-08-12] MEDS: CHOLECALCIFEROL 25 MCG (1000 IU) TABLET PO SCH (09:17)
[2020-08-12] MEDS: ZINC SULFATE 220 MG CAP PO SCH (09:17)
[2020-08-12] MEDS: DEXAMETHASONE SOD PHOSPHATE 10 MG/ML 1 ML VIAL IV SCH (09:18)
[2020-08-12] MEDS: ENOXAPARIN 40 MG/0.4 ML SYRINGE SQ SCH (09:18)
[2020-08-12] MEDS: ASPIRIN 81 MG PO SCH (09:23)
[2020-08-12 12:49] LABS: Basophils # (A) 0.1 k/uL (0-0.2); Basophils % (A) 1 %; Eosinophils % (A) 0 %; HCT 46.9 % (39.0-53.0); HGB 16.3 gm/dL (13.0-17.5); Lymphocytes # (A) 0.5 k/uL (1.0-4.8); Lymphocytes % (A) 5 %; MCH 30.3 pg (25.0-35.0); MCHC 34.8 g/dL (31.0-37.0); Mean Platelet Volume 8.6; Monocytes # (A) 0.3 k/uL (0-1.0); Monocytes % (A) 3 %; Neutrophils # (A) 8.9 k/uL (1.3-7.7); Neutrophils % (A) 90 %; Platelet Count 188 k/uL (150-450); RBC 5.39 m/uL (4.30-5.90); RDW 12.5 % (11.5-15.5)
[2020-08-12 13:10] LABS: ALT 43 U/L (4-49); AST 85 U/L (17-59); African American GFR (CKD) 78 (>60 ml/min/1.73 sqM); Albumin 3.9 g/dL (3.5-5.0); Albumin/Globulin Ratio 1.2; Alkaline Phosphatase 48 U/L (38-126); Anion Gap 7 mmol/L; Blood Urea Nitrogen 41 mg/dL (9-20); Calcium 8.8 mg/dL (8.4-10.2); Carbon Dioxide 28 mmol/L (22-30); Chloride 101 mmol/L (98-107); Globulin 3.3 g/dL; Glucose 101 mg/dL (74-99); Magnesium 3.1 mg/dL (1.6-2.3); Non-African American GFR(CKD) 68 (>60 ml/min/1.73 sqM); Phosphorus 3.2 mg/dL (2.5-4.5); Potassium 5.4 mmol/L (3.5-5.1); Sodium 136 mmol/L (137-145); Total Bilirubin 0.9 mg/dL (0.2-1.3); Total Protein 7.2 g/dL (6.3-8.2)
[2020-08-12 15:20] VITALS: BMI 26.2
--- NOTE | 2020-08-12 18:09 | P.PN ---
Subjective Progress Note Date: 08/12/20 Principal diagnosis: CoVID 19 pneumonitis This is a 65-year-old male, there hasn't been feeling well for at least 2 weeks. He complains initially of fatigue, weakness, joint pain, and anorexia. The patient is awake, he is complaining about being short of breath. The patient's appetite has been poor. He has not been really eating or drinking very much at all. The patient was in ER, room #1 when I saw him. He was not receiving any IV fluids. He was on O2 at 3 L by nasal cannula. Again not receiving any IV fluids. Used to see a doctor in the area but has not seen a doctor for some time. He is otherwise pretty healthy. He was seen in the emergency room by Dr. Elena. White count was 3.69, hemoglobin 15, hematocrit 45.4, and platelet count 142,000. D-dimer was 1.01. PT, INR, and PTT were normal. Sodium 133, potassium 5.2, chloride 97, CO2 28, anion gap 8, BUN 45, and creatinine 1.7. The patient's C-reactive protein was 57.2. He tested positive for calvillo virus on August 09. Chest x-ray showed bilateral multifocal infiltrates consistent with the diagnosis of COVID 19 pneumonia. Computed tomography scan showed typical findings with diffuse bilateral groundglass opacities. There was no acute pulmonary embolism. Progress note dated 08/11/2020. 65-year-old male, that we saw yesterday in consultation. He complained of 2 weeks with increasing shortness of breath, fatigue, weakness, joint pain, and anorexia. Currently, the patient's on 4 L nasal cannula. He's not receiving any IV fluids. He is short of breath. He states he feels more short of breath today than he did yesterday. The patient currently does not have a primary care physician. There is no new laboratory data on this patient today. Computed tomography scan showed typical findings with diffuse bilateral groundglass opacities. There is no evidence of pulmonary embolism. The patient is seen today 08/12/2020 in follow-up on the regular medical floor. He is currently sitting up in bed. Awake and alert in no acute distress. He is on 6 L high flow nasal cannula and maintaining O2 saturation in the 90s. Doing a bit better today compared to yesterday. Still dyspneic with minimal exertion. He is continued on Decadron, Lovenox, vitamin supplements. Objective - Vital Signs Vital signs: Vital Signs Temp 98.3 F 08/12/20 13:42 Pulse 69 08/12/20 13:42 Resp 18 08/12/20 13:42 BP 130/86 08/12/20 13:42 Pulse Ox 91 L 08/12/20 13:42 Intake & Output 08/11/20 08/12/20 08/12/20 18:59 06:59 18:59 Weight 80.739 kg 80.739 kg Other: # Voids 1 - Exam GENERAL EXAM: Alert, pleasant 65-year-old gentleman, on 6 L high flow nasal symone nia,, comfortable in no apparent distress. HEAD: Normocephalic. EYES: Normal reaction of pupils, equal size. NOSE: Clear with pink turbinates. THROAT: No erythema or exudates. NECK: No masses, no JVD. CHEST: No chest wall deformity. LUNGS: Equal air entry with coarse crackles in the bilateral bases CVS: S1 and S2 normal with no audible murmur, regular rhythm. ABDOMEN: No hepatosplenomegaly, normal bowel sounds, no guarding or rigidity. SPINE: No scoliosis or deformity SKIN: No rashes CENTRAL NERVOUS SYSTEM: No focal deficits, tone is normal in all 4 extremities. EXTREMITIES: There is no peripheral edema. No clubbing, no cyanosis. Peripheral pulses are intact. - Labs CBC & Chem 7: 08/12/20 12:29 08/12/20 12:29 Labs: Abnormal Lab Results - Last 24 Hours (Table) 08/12/20 08/12/20 Range/Units 12:29 12:29 Neutrophils # 8.9 H (1.3-7.7) k/uL Lymphocytes # 0.5 L (1.0-4.8) k/uL Sodium 136 L (137-145) mmol/L Potassium 5.4 H (3.5-5.1) mmol/L BUN 41 H (9-20) mg/dL Glucose 101 H (74-99) mg/dL Magnesium 3.1 H (1.6-2.3) mg/dL AST 85 H (17-59) U/L Assessment and Plan Assessment: 1 Acute hypoxemic respiratory failure secondary to cope in 19 pneumonia/pneumonitis. Outside the window for Remdesivir 2 History of bilateral knee surgery 3 Lifelong nonsmoker. Plan: The patient was seen and evaluated by Dr. Bergman Currently stable and on 6 L nasal cannula Continue Lovenox, Decadron, vitamin supplements Increase his activity as tolerate Titrate down the FiO2 as tolerated Follow up chest x-ray and inflammatory markers in the a.m. We will continue to follow I, the cosigning physician, performed a history & physical examination of the patient. Lungs sounds with crackles in the posterior bases. Maintaining good O2 saturations in the 90s on its liters high flow nasal cannula. I discussed the assessment and plan of care with my nurse practitioner, Andree Soto. I attest to the above note as dictated by her.
[2020-08-12] MEDS: SODIUM CHLORIDE 0.9% 1,000 ML IV SCH (19:57)
[2020-08-13] MEDS: DEXAMETHASONE SOD PHOSPHATE 10 MG/ML 1 ML VIAL IV SCH (08:23)
[2020-08-13] MEDS: PANTOPRAZOLE 40 MG/10 ML VIAL IV SCH (08:23)
[2020-08-13] MEDS: ENOXAPARIN 40 MG/0.4 ML SYRINGE SQ SCH (08:23)
[2020-08-13] MEDS: CHOLECALCIFEROL 25 MCG (1000 IU) TABLET PO SCH (08:24)
[2020-08-13] MEDS: ASPIRIN 81 MG PO SCH (08:24)
[2020-08-13] MEDS: ASCORBIC ACID 500 MG TAB PO SCH (08:24)
[2020-08-13] MEDS: ZINC SULFATE 220 MG CAP PO SCH (08:24)
[2020-08-13] MEDS: amLODIPine 5 MG TAB PO SCH (08:24)
[2020-08-13 09:00] LABS: ALT 94 U/L (4-49); AST 120 U/L (17-59); African American GFR (CKD) 72 (>60 ml/min/1.73 sqM); Albumin 4.3 g/dL (3.5-5.0); Albumin/Globulin Ratio 1.2; Alkaline Phosphatase 50 U/L (38-126); Anion Gap 8 mmol/L; Blood Urea Nitrogen 40 mg/dL (9-20); C Reactive Protein 16.4 mg/L (<10.0); Calcium 9.1 mg/dL (8.4-10.2); Carbon Dioxide 30 mmol/L (22-30); Chloride 100 mmol/L (98-107); Globulin 3.7 g/dL; Glucose 96 mg/dL (74-99); LDH 1232 U/L (313-618); Magnesium 3.3 mg/dL (1.6-2.3); Non-African American GFR(CKD) 62 (>60 ml/min/1.73 sqM); Phosphorus 3.7 mg/dL (2.5-4.5); Potassium 5.3 mmol/L (3.5-5.1); Sodium 138 mmol/L (137-145); Total Bilirubin 1.1 mg/dL (0.2-1.3)
--- NOTE | 2020-08-13 09:48 | P.PN ---
Subjective Progress Note Date: 08/13/20 Principal diagnosis: sob Patient is feeling the same, no change in his breathing. No shortness of breath. No chest pain. Still having a cough. No fevers or chills. Objective - Vital Signs Vital signs: Vital Signs Temp 97.6 F 08/13/20 09:24 Pulse 77 08/13/20 09:24 Resp 18 08/13/20 09:24 BP 143/91 08/13/20 09:24 Pulse Ox 92 L 08/13/20 09:24 Intake & Output 08/12/20 08/13/20 08/13/20 18:59 06:59 18:59 Output Total 500 Balance -500 Weight 80.739 kg Output: Urine 500 Other: Voiding Method Urinal Urinal # Voids 2 2 - Exam Constitutional: No acute distress, conversant, pleasant Eyes:Anicteric sclerae, moist conjunctiva, no lid-lag, PERRLA, ENMT: Oropharynx clear, no erythema, exudates Neck: Supple, FROM, no masses, or JVD, No carotid bruits, No thyromegaly Lungs: Clear to auscultation, Clear to percussion, Normal respiratory effort, no accessory muscle use Cardiovascular: Heart regular in rate and rhythm, No murmurs, gallops, or rubs, No peripheral edema Abdominal: Soft, Nontender, no guarding, rebound or rigidity, Normoactive bowel sounds, No hepatomegaly, No splenomegaly, No palpable mass Skin: Normal temperature, tone, texture, turgor, no induration, No subcutaneous nodules, No rash, lesions, No ulcers Extremities: No digital cyanosis, No clubbing, Pedal pulses intact and symmetrical, Radial pulses intact and symmetrical, No calf tenderness Psychiatric: Alert and oriented to person, place and time, appropriate affect, intact judgement Neuro: Muscles Strength 5/5 in all 4 extremities, Sensation to light touch grossly present throughout, Cranial nerves II-XII grossly intact, no focal sensory deficits - Labs CBC & Chem 7: 08/12/20 12:29 08/13/20 08:03 Labs: Abnormal Lab Results - Last 24 Hours (Table) 08/12/20 08/12/20 08/13/20 Range/Units 12:29 12:29 08:03 Neutrophils # 8.9 H (1.3-7.7) k/uL Lymphocytes # 0.5 L (1.0-4.8) k/uL D-Dimer 0.95 H (<0.60) mg/L FEU Sodium 136 L (137-145) mmol/L Potassium 5.4 H (3.5-5.1) mmol/L BUN 41 H (9-20) mg/dL Glucose 101 H (74-99) mg/dL Magnesium 3.1 H (1.6-2.3) mg/dL AST 85 H (17-59) U/L ALT (4-49) U/L Lactate Dehydrogenase (313-618) U/L C-Reactive Protein (<10.0) mg/L 08/13/20 Range/Units 08:03 Neutrophils # (1.3-7.7) k/uL Lymphocytes # (1.0-4.8) k/uL D-Dimer (<0.60) mg/L FEU Sodium (137-145) mmol/L Potassium 5.3 H (3.5-5.1) mmol/L BUN 40 H (9-20) mg/dL Glucose (74-99) mg/dL Magnesium 3.3 H (1.6-2.3) mg/dL AST 120 H (17-59) U/L ALT 94 H (4-49) U/L Lactate Dehydrogenase 1232 H (313-618) U/L C-Reactive Protein 16.4 H (<10.0) mg/L Assessment and Plan Plan: Acute covid pneumonia Continue decadron 6 mg IV daily Pulm following Acute hypoxic respiratory failure Sec to above, worsening Currently doing well on NC with oxygen now up to 6 L Monitor pulse ox Acute sepsis Sec to covid Lactic acid okay Transaminitis Secondary to Covid Continue to monitor Hyponatremia and JAVED Resolved DVT prophylaxis Lovenox s.q Anticipated discharge: 4 days Disposition: Home
--- NOTE | 2020-08-13 10:29 | XR ---
EXAMINATION TYPE: XR chest 1V portable DATE OF EXAM: 08/13/2020 COMPARISON: Chest x-ray 08/09/2020 HISTORY: Covid pneumonia TECHNIQUE: Single frontal view of the chest is obtained. FINDINGS: Bilateral airspace disease is again seen in a similar distribution. There is no evident pn eumothorax or pleural effusion. Cardiac mediastinal silhouette is stable. There are overlying artifac ts. IMPRESSION: Correlate for pneumonia.
[2020-08-13 11:15] LABS: Basophils # (A) 0.01 X 10*3/uL (0.00-0.10); Basophils % (A) 0.1 %; Eosinophils # (A) 0.01 X 10*3/uL (0.04-0.35); Eosinophils % (A) 0.1 %; HCT 50.7 % (39.6-50.0); HGB 16.7 g/dL (13.0-17.0); Lymphocytes # (A) 1.05 X 10*3/uL (0.90-5.00); Lymphocytes % (A) 13.4 %; MCH 29.7 pg (27.0-32.0); MCHC 32.9 g/dL (32.0-37.0); MCV 90.2 fL (80.0-97.0); Mean Platelet Volume 11.4 fL (9.5-12.2); Monocytes # (A) 0.35 X 10*3/uL (0.20-1.00); Monocytes % (A) 4.5 %; Neutrophils % (A) 81.4 %; Platelet Count 241 X 10*3/uL (140-440); RBC 5.62 X 10*6/uL (4.40-5.60); RDW 12.5 % (11.5-14.5); WBC 7.86 X 10*3/uL (4.50-10.00)
--- NOTE | 2020-08-13 15:15 | P.PN ---
Subjective Progress Note Date: 08/13/20 Principal diagnosis: CoVID 19 pneumonitis This is a 65-year-old male, there hasn't been feeling well for at least 2 weeks. He complains initially of fatigue, weakness, joint pain, and anorexia. The patient is awake, he is complaining about being short of breath. The patient's appetite has been poor. He has not been really eating or drinking very much at all. The patient was in ER, room #1 when I saw him. He was not receiving any IV fluids. He was on O2 at 3 L by nasal cannula. Again not receiving any IV fluids. Used to see a doctor in the area but has not seen a doctor for some time. He is otherwise pretty healthy. He was seen in the emergency room by Dr. Elena. White count was 3.69, hemoglobin 15, hematocrit 45.4, and platelet count 142,000. D-dimer was 1.01. PT, INR, and PTT were normal. Sodium 133, potassium 5.2, chloride 97, CO2 28, anion gap 8, BUN 45, and creatinine 1.7. The patient's C-reactive protein was 57.2. He tested positive for calvillo virus on August 09. Chest x-ray showed bilateral multifocal infiltrates consistent with the diagnosis of COVID 19 pneumonia. Computed tomography scan showed typical findings with diffuse bilateral groundglass opacities. There was no acute pulmonary embolism. Progress note dated 08/11/2020. 65-year-old male, that we saw yesterday in consultation. He complained of 2 weeks with increasing shortness of breath, fatigue, weakness, joint pain, and anorexia. Currently, the patient's on 4 L nasal cannula. He's not receiving any IV fluids. He is short of breath. He states he feels more short of breath today than he did yesterday. The patient currently does not have a primary care physician. There is no new laboratory data on this patient today. Computed tomography scan showed typical findings with diffuse bilateral groundglass opacities. There is no evidence of pulmonary embolism. The patient is seen today 08/12/2020 in follow-up on the regular medical floor. He is currently sitting up in bed. Awake and alert in no acute distress. He is on 6 L high flow nasal cannula and maintaining O2 saturation in the 90s. Doing a bit better today compared to yesterday. Still dyspneic with minimal exertion. He is continued on Decadron, Lovenox, vitamin supplements. The patient is seen today 08/13/2020 in follow-up on the regular medical floor. He is currently sitting up in bed. Awake and alert in no acute distress. Breathing a bit easier today compared to yesterday. Still with some nonproductive cough. He is on 6 L high flow nasal cannula. Chest x-ray continues to show bilateral patchy infiltrates. He is afebrile. Hemodynamically stable. White count 7.8. Hemoglobin 16.7. Lymphocytes 1.05. D-dimer 0.95. Sodium 138. Potassium 5.3. Creatinine 1.21. Objective - Vital Signs Vital signs: Vital Signs Temp 97.6 F 08/13/20 09:24 Pulse 77 08/13/20 09:24 Resp 18 08/13/20 09:24 BP 143/91 08/13/20 09:24 Pulse Ox 92 L 08/13/20 09:24 Intake & Output 08/12/20 08/13/20 08/13/20 18:59 06:59 18:59 Output Total 500 700 Balance -500 -700 Weight 80.739 kg Output: Urine 500 700 Other: Voiding Method Urinal Urinal # Voids 2 2 - Exam GENERAL EXAM: Alert, pleasant 65-year-old gentleman, on 6 L high flow nasal cannula, comfortable in no apparent distress. HEAD: Normocephalic. EYES: Normal reaction of pupils, equal size. NOSE: Clear with pink turbinates. THROAT: No erythema or exudates. NECK: No masses, no JVD. CHEST: No chest wall deformity. LUNGS: Equal air entry with coarse crackles in the bilateral bases CVS: S1 and S2 normal with no audible murmur, regular rhythm. ABDOMEN: No hepatosplenomegaly, normal bowel sounds, no guarding or rigidity. SPINE: No scoliosis or deformity SKIN: No rashes CENTRAL NERVOUS SYSTEM: No focal deficits, tone is normal in all 4 extremities. EXTREMITIES: There is no peripheral edema. No clubbing, no cyanosis. Peripheral pulses are intact. - Labs CBC & Chem 7: 08/13/20 08:03 08/13/20 08:03 Labs: Abnormal Lab Results - Last 24 Hours (Table) 08/13/20 08/13/20 08/13/20 Range/Units 08:03 08:03 08:03 RBC 5.62 H (4.40-5.60) X 10*6/uL Hct 50.7 H (39.6-50.0) % Eosinophils # 0.01 L (0.04-0.35) X 10*3/uL D-Dimer 0.95 H (<0.60) mg/L FEU Potassium 5.3 H (3.5-5.1) mmol/L BUN 40 H (9-20) mg/dL Magnesium 3.3 H (1.6-2.3) mg/dL AST 120 H (17-59) U/L ALT 94 H (4-49) U/L Lactate Dehydrogenase 1232 H (313-618) U/L C-Reactive Protein 16.4 H (<10.0) mg/L Assessment and Plan Assessment: 1 Acute hypoxemic respiratory failure secondary to CoVID 19 pneumonia/pneumonitis. Outside the window for Remdesivir 2 History of bilateral knee surgery 3 Lifelong nonsmoker. Plan: The patient was seen and evaluated by Dr. Bergman Chest x-ray and labs reviewed Continue Lovenox, Decadron, vitamin supplements Increase his activity as tolerate Titrate down the FiO2 as tolerated We will continue to follow I, the cosigning physician, performed a history & physical examination of the patient. Lungs sounds with crackles in the posterior bases. Maintaining good O2 saturations in the 90s on 6 liters high flow nasal cannula. I discussed the assessment and plan of care with my nurse practitioner, Andree Soto. I attest to the above note as dictated by her.
[2020-08-14] MEDS: SODIUM CHLORIDE 0.9% 1,000 ML IV SCH ×2 (04:01→17:25)
[2020-08-14 07:29] LABS: Glucose,Whole Blood 80 mg/dL (75-99)
[2020-08-14] MEDS: ASPIRIN 81 MG PO SCH (09:16)
[2020-08-14] MEDS: amLODIPine 5 MG TAB PO SCH (09:16)
[2020-08-14] MEDS: ZINC SULFATE 220 MG CAP PO SCH (09:16)
[2020-08-14] MEDS: PANTOPRAZOLE 40 MG/10 ML VIAL IV SCH (09:16)
[2020-08-14] MEDS: CHOLECALCIFEROL 25 MCG (1000 IU) TABLET PO SCH (09:16)
[2020-08-14] MEDS: ASCORBIC ACID 500 MG TAB PO SCH (09:16)
[2020-08-14] MEDS: ENOXAPARIN 40 MG/0.4 ML SYRINGE SQ SCH (09:17)
[2020-08-14] MEDS: DEXAMETHASONE SOD PHOSPHATE 10 MG/ML 1 ML VIAL IV SCH (09:17)
--- NOTE | 2020-08-14 16:11 | P.PN ---
Subjective Progress Note Date: 08/14/20 Principal diagnosis: CoVID 19 pneumonitis This is a 65-year-old male, there hasn't been feeling well for at least 2 weeks. He complains initially of fatigue, weakness, joint pain, and anorexia. The patient is awake, he is complaining about being short of breath. The patient's appetite has been poor. He has not been really eating or drinking very much at all. The patient was in ER, room #1 when I saw him. He was not receiving any IV fluids. He was on O2 at 3 L by nasal cannula. Again not receiving any IV fluids. Used to see a doctor in the area but has not seen a doctor for some time. He is otherwise pretty healthy. He was seen in the emergency room by Dr. Elena. White count was 3.69, hemoglobin 15, hematocrit 45.4, and platelet count 142,000. D-dimer was 1.01. PT, INR, and PTT were normal. Sodium 133, potassium 5.2, chloride 97, CO2 28, anion gap 8, BUN 45, and creatinine 1.7. The patient's C-reactive protein was 57.2. He tested positive for calvillo virus on August 09. Chest x-ray showed bilateral multifocal infiltrates consistent with the diagnosis of COVID 19 pneumonia. Computed tomography scan showed typical findings with diffuse bilateral groundglass opacities. There was no acute pulmonary embolism. Progress note dated 08/11/2020. 65-year-old male, that we saw yesterday in consultation. He complained of 2 weeks with increasing shortness of breath, fatigue, weakness, joint pain, and anorexia. Currently, the patient's on 4 L nasal cannula. He's not receiving any IV fluids. He is short of breath. He states he feels more short of breath today than he did yesterday. The patient currently does not have a primary care physician. There is no new laboratory data on this patient today. Computed tomography scan showed typical findings with diffuse bilateral groundglass opacities. There is no evidence of pulmonary embolism. The patient is seen today 08/12/2020 in follow-up on the regular medical floor. He is currently sitting up in bed. Awake and alert in no acute distress. He is on 6 L high flow nasal cannula and maintaining O2 saturation in the 90s. Doing a bit better today compared to yesterday. Still dyspneic with minimal exertion. He is continued on Decadron, Lovenox, vitamin supplements. The patient is seen today 08/13/2020 in follow-up on the regular medical floor. He is currently sitting up in bed. Awake and alert in no acute distress. Breathing a bit easier today compared to yesterday. Still with some nonproductive cough. He is on 6 L high flow nasal cannula. Chest x-ray continues to show bilateral patchy infiltrates. He is afebrile. Hemodynamically stable. White count 7.8. Hemoglobin 16.7. Lymphocytes 1.05. D-dimer 0.95. Sodium 138. Potassium 5.3. Creatinine 1.21. The patient is seen today 08/14/2020 in follow-up on the regular medical floor. He is currently sitting up at the bedside. Awake and alert in no acute distress. He is breathing a bit better today compared to yesterday. He is still on 6 L high flow nasal cannula to maintain O2 saturations in the 90s. He remains on Decadron, Lovenox, vitamin supplements. Glucose 80. Objective - Vital Signs Vital signs: Vital Signs Temp 97.7 F 08/14/20 14:00 Pulse 64 08/14/20 14:00 Resp 20 08/14/20 14:00 BP 155/89 08/14/20 14:00 Pulse Ox 93 L 08/14/20 14:00 Intake & Output 08/13/20 08/14/20 08/14/20 18:59 06:59 18:59 Intake Total 500 200 Output Total 700 Balance -200 200 Intake: Oral 500 200 Output: Urine 700 Other: Voiding Method Urinal Urinal Urinal - Exam GENERAL EXAM: Alert, pleasant 65-year-old gentleman, on 6 L high flow nasal cannula, comfortable in no apparent distress. HEAD: Normocephalic. EYES: Normal reaction of pupils, equal size. NOSE: Clear with pink turbinates. THROAT: No erythema or exudates. NECK: No masses, no JVD. CHEST: No chest wall deformity. LUNGS: Equal air entry with coarse crackles in the bilateral bases CVS: S1 and S2 normal with no audible murmur, regular rhythm. ABDOMEN: No hepatosplenomegaly, normal bowel sounds, no guarding or rigidity. SPINE: No scoliosis or deformity SKIN: No rashes CENTRAL NERVOUS SYSTEM: No focal deficits, tone is normal in all 4 extremities. EXTREMITIES: There is no peripheral edema. No clubbing, no cyanosis. Peripheral pulses are intact. - Labs CBC & Chem 7: 08/13/20 08:03 08/13/20 08:03 Assessment and Plan Assessment: 1 Acute hypoxemic respiratory failure secondary to CoVID 19 pneu monia/pneumonitis. Outside the window for Remdesivir 2 History of bilateral knee surgery 3 Lifelong nonsmoker. Plan: The patient was seen and evaluated by Dr. Bergman Continue Lovenox, Decadron, vitamin supplements Increase his activity as tolerated Titrate down the FiO2 as tolerated May require home oxygen We will continue to follow I, the cosigning physician, performed a history & physical examination of the patient. Lungs sounds with crackles in the posterior bases. Maintaining good O2 saturations in the 90s on 6 liters high flow nasal cannula. I discussed the assessment and plan of care with my nurse practitioner, Andree Soto. I attest to the above note as dictated by her.
--- NOTE | 2020-08-14 17:20 | P.PN ---
Subjective Progress Note Date: 08/14/20 History of presenting illness: Patient is a 65-year-old male with no known reported past medical history. He is currently admitted under our services with consult to pulmonology after presenting to the hospital on 08/09/20 with a chief complaint of shortness of b reath and found to be in acute respiratory distress with hypoxia requiring oxygen supplementation to maintain SpO2 greater than 90%. His Covid 19 PCR resulted positive. Initial Chest X-ray was positive for bilateral infiltrates. CTA showing bilateral diffuse patchy groundglass opacities, consistent with history of Covid pneumonia with Incidental 4 mm right middle lobe nodule which will need follow-up in 6 months. EKG showing normal sinus rhythm at 81 bpm with T-wave inversion in inferior leads III and aVF and V1. Repeat chest x-ray was obtained on 08/13/20 revealing persistent bilateral airspace disease correlating for pneumonia. Physical exam: Patient seen and fully evaluated at bedside this morning. General: non toxic, no distress, appears at stated age. Derm: warm, dry Head: atraumatic, normocephalic, symmetric Eyes: EOMI, no lid lag, anicteric sclera Mouth: no lip lesion, mucus membranes moist Cardiovascular: S1S2 reg, no murmur, positive posterior tibial pulse bilateral, Lungs: CTA bilateral, no rhonchi, no rales , no accessory muscle use Abdominal: soft, nontender to palpation, no guarding, no appreciable organomegaly Ext: no gross muscle atrophy, no edema, no contractures Neuro: CN II-XI grossly intact, no focal neuro deficits Psych: Alert, oriented, appropriate affect Assessment and Plan of care: Acute respiratory failure with hypoxia secondary to Covid 19 pneumonia. -Patient tested positive for Covid 19 virus infection on 08/09/20, however reports symptoms began 2 weeks prior therefore patient out of the window for receiving Remdesivir. -Initial Chest X-ray was positive for bilateral infiltrates. -CTA showing bilateral diffuse patchy groundglass opacities, consistent with history of Covid pneumonia -Repeat chest x-ray was obtained on 08/13/20 revealing persistent bilateral airspace disease correlating for pneumonia. -Continue Oxygenation, titrate down once patient able to tolerate. Currently on 6 L high flow nasal cannula. -Telemetry monitoring. -Continuous Pulse-oximetry -Continue Decadron 6 mg daily, day 5 of 10 for steroids. -Incentive Spirometry -Continue vitamin C, vitamin D, zinc, and melatonin. -Plaquenil received for 7 days starting 08/05/20 in outpatient setting with last dose administered day of arrival. -Initial CRP 57.2 which is showing mild improvement decreasing down to 16.4. Initial d-dimer 1.01 with repeat of 0.95. -LDH 1232. Transaminitis -AST 120 and ALT 94 -Likely secondary to Covid 19 virus infection -We will continue to monitor. Acute kidney injury, improved -BUN 40, creatinine 1.21, and GFR 62. This is improved as upon arrival BUN 31, creatinine 1.35, and GFR of 54. -We will continue to monitor. Hyponatremia, resolved CODE STATUS: Full code DVT prophylaxis: Lovenox Discussed with: Patient, patient's RN-Alanna and pt's son Jack Anticipated discharge date: Clinical course to determine Anticipated discharge place: Home A total of 45 minutes was spent on the care of this complex patient more than 50% of the time was spent in counseling and care coordination. Objective - Vital Signs Vital signs: Vital Signs Temp 97.6 F 08/14/20 05:29 Pulse 69 08/14/20 05:29 Resp 16 08/14/20 05:29 BP 154/92 08/14/20 05:29 Pulse Ox 93 L 08/14/20 05:29 Intake & Output 08/13/20 08/14/20 08/14/20 18:59 06:59 18:59 Intake Total 500 200 Output Total 700 Balance -200 200 Intake: Oral 500 200 Output: Urine 700 Other: Voiding Method Urinal Urinal - Labs CBC & Chem 7: 08/13/20 08:03 08/13/20 08:03 Labs: Abnormal Lab Results - Last 24 Hours (Table) 08/13/20 Range/Units 08:03 RBC 5.62 H (4.40-5.60) X 10*6/uL Hct 50.7 H (39.6-50.0) % Eosinophils # 0.01 L (0.04-0.35) X 10*3/uL
[2020-08-15] MEDS: PANTOPRAZOLE 40 MG/10 ML VIAL IV SCH (08:32)
[2020-08-15] MEDS: DEXAMETHASONE SOD PHOSPHATE 10 MG/ML 1 ML VIAL IV SCH (08:32)
[2020-08-15] MEDS: CHOLECALCIFEROL 25 MCG (1000 IU) TABLET PO SCH ×2 (08:33→08:34)
[2020-08-15] MEDS: ASCORBIC ACID 500 MG TAB PO SCH (08:33)
[2020-08-15] MEDS: ZINC SULFATE 220 MG CAP PO SCH (08:33)
[2020-08-15] MEDS: amLODIPine 5 MG TAB PO SCH (08:33)
[2020-08-15] MEDS: ENOXAPARIN 40 MG/0.4 ML SYRINGE SQ SCH (08:34)
[2020-08-15] MEDS: ASPIRIN 81 MG PO SCH (08:34)
[2020-08-15 11:22] LABS: Basophils # (A) 0.01 X 10*3/uL (0.00-0.10); Basophils % (A) 0.1 %; Eosinophils % (A) 1.3 %; HGB 15.5 g/dL (13.0-17.0); Lymphocytes # (A) 1.23 X 10*3/uL (0.90-5.00); Lymphocytes % (A) 15.4 %; MCH 29.5 pg (27.0-32.0); MCHC 33.7 g/dL (32.0-37.0); MCV 87.6 fL (80.0-97.0); Mean Platelet Volume 11.2 fL (9.5-12.2); Monocytes # (A) 0.57 X 10*3/uL (0.20-1.00); Monocytes % (A) 7.1 %; Neutrophils # (A) 6.01 X 10*3/uL (1.80-7.70); Neutrophils % (A) 75.3 %; Platelet Count 298 X 10*3/uL (140-440); RBC 5.25 X 10*6/uL (4.40-5.60); WBC 7.98 X 10*3/uL (4.50-10.00)
[2020-08-15 12:41] LABS: African American GFR (CKD) 80.6 (60.0-200.0); Albumin/Globulin Ratio 1.38 (1.60-3.17); Anion Gap 6.2 mmol/L (4.00-12.00); BUN/Creat Ratio 27.27 Ratio (12.00-20.00); Calcium 8.9 mg/dL (8.7-10.3); Carbon Dioxide 24.8 mmol/L (21.6-31.8); Globulin 2.9 g/dL (1.6-3.3); Non-African American GFR(CKD) 69.6 (60.0-200.0); Potassium 4.3 mmol/L (3.5-5.5); Total Protein 6.9 g/dL (6.2-8.2)
--- NOTE | 2020-08-15 14:58 | P.PN ---
<Marc Villalobos - Last Filed: 08/15/20 14:48> Subjective Progress Note Date: 08/15/20 History of presenting illness: Patient is a 65-year-old male with no known reported past medical history. He is currently admitted under our services with consult to pulmonology after presenting to the hospital on 08/09/20 with a chief complaint of shortness of breath and found to be in acute respiratory distress with hypoxia requiring oxygen supplementation to maintain SpO2 greater than 90%. His Covid 19 PCR resulted positive. Initial Chest X-ray was positive for bilateral infiltrates. CTA showing bilateral diffuse patchy groundglass opacities, consistent with history of Covid pneumonia with Incidental 4 mm right middle lobe nodule which will need follow-up in 6 months. EKG showing normal sinus rhythm at 81 bpm with T-wave inversion in inferior leads III and aVF and V1. Repeat chest x-ray was obtained on 08/13/20 revealing persistent bilateral airspace disease correlating for pneumonia. Patient requiring 6 L O2 via high flow nasal cannula to maintain SpO2 greater than 90%. Physical exam: Patient seen and fully evaluated at bedside this morning. General: non toxic, no distress, appears at stated age. Derm: warm, dry Head: atraumatic, normocephalic, symmetric Eyes: EOMI, no lid lag, anicteric sclera Mouth: no lip lesion, mucus membranes moist Cardiovascular: S1S2 reg, no murmur, positive posterior tibial pulse bilateral, Lungs: CTA bilateral, no rhonchi, no rales , no accessory muscle use Abdominal: soft, nontender to palpation, no guarding, no appreciable organomegaly Ext: no gross muscle atrophy, no edema, no contractures Neuro: CN II-XI grossly intact, no focal neuro deficits Psych: Alert, oriented, appropriate affect Assessment and Plan of care: Acute respiratory failure with hypoxia secondary to Covid 19 pneumonia. -Patient tested positive for Covid 19 virus infection on 08/09/20, however reports symptoms began 2 weeks prior therefore patient out of the window for receiving Remdesivir. -Initial Chest X-ray was positive for bilateral infiltrates. -CTA showing bilateral diffuse patchy groundglass opacities, consistent with history of Covid pneumonia -Repeat chest x-ray was obtained on 08/13/20 revealing persistent bilateral airspace disease correlating for pneumonia. -Continue Oxygenation, titrate down once patient able to tolerate. Currently on 6 L high flow nasal cannula. -Telemetry monitoring. -Continuous Pulse-oximetry -Continue Decadron 6 mg daily, day 6 of 10 for steroids. -Incentive Spirometry -Continue vitamin C, vitamin D, zinc, and melatonin. -Plaquenil received for 7 days starting 08/05/20 in outpatient setting with last dose administered day of arrival. -Initial CRP 57.2 which is showing mild improvement decreasing down to 16.4. Initial d-dimer 1.01 with repeat of 0.95. -LDH 1232. Transaminitis -AST 77 and ALT 135 -Likely secondary to Covid 19 virus infection -We will continue to monitor. Acute kidney injury, improved -BUN 30.0, creatinine 1.1, and GFR 69.6. -We will continue to monitor. Hyponatremia, resolved CODE STATUS: Full code DVT prophylaxis: Lovenox Discussed with: Patient and patient's RNDagoberto Anticipated discharge date: Clinical course to determine Anticipated discharge place: Home A total of 45 minutes was spent on the care of this complex patient more than 50% of the time was spent in counseling and care coordination. Objective - Vital Signs Vital signs: Vital Signs Temp 97.9 F 08/15/20 05:47 Pulse 65 08/15/20 05:47 Resp 16 08/15/20 08:00 BP 139/81 08/15/20 05:47 Pulse Ox 92 L 08/15/20 05:47 Intake & Output 08/14/20 08/15/20 08/15/20 18:59 06:59 18:59 Intake Total 200 240 Balance 200 240 Intake: Oral 200 240 Other: Voiding Method Urinal Urinal # Voids 3 1 - Labs CBC & Chem 7: 08/15/20 07:49 08/15/20 07:49 <Marina Lazo - Last Filed: 08/15/20 16:55> Objective - Vital Signs Vital signs: Vital Signs Temp 98.4 F 08/15/20 14:17 Pulse 65 08/15/20 14:17 Resp 16 08/15/20 14:17 BP 122/79 08/15/20 14:17 Pulse Ox 95 08/15/20 14:17 Intake & Output 08/14/20 08/15/20 08/15/20 18:59 06:59 18:59 Intake Total 200 240 Balance 200 240 Intake: Oral 200 240 Other: Voiding Method Urinal Urinal # Voids 3 1 - Labs CBC & Chem 7: 08/15/20 07:49 08/15/20 07:49 Labs: Abnormal Lab Results - Last 24 Hours (Table) 08/15/20 08/15/20 Range/Units 07:49 07:49 Immature Gran # 0.06 H (0.00-0.04) X 10*3/uL BUN 30.0 H (9.0-27.0) mg/dL BUN/Creatinine Ratio 27.27 H (12.00-20.00) Ratio Glucose 118 H (70-110) mg/dL AST 77 H (14-35) U/L ALT 135 H (10-49) U/L Albumin/Globulin Ratio 1.38 L (1.60-3.17) g/dL Assessment and Plan Assessment: Patient seen and examined independently. Patient was also seen by Marc Villalobos NP and case was discussed. I am in agreement with subjective, physical exam, assessment and plan as written above and amended below. He states that he is feeling okay. Denies any shortness of breath, fatigue, nausea, or vomiting. General: non toxic, no distress, appears at stated age Derm: warm, dry Head: atraumatic, normocephalic, symmetric Eyes: EOMI, no lid lag, anicteric sclera Mouth: no lip lesion, mucus membranes moist Cardiovascular: S1S2 reg, no murmur, positive posterior tibial pulse bilateral, Lungs: Velcro crackles bilateral bases, no rhonchi, no rales , no accessory muscle use Neuro: CN II-XI grossly intact, no focal neuro deficits Psych: Alert, oriented, appropriate affect Pulm Nodule - outpatient follow-up with Pulm will need continued CT monitoring.
--- NOTE | 2020-08-15 16:34 | P.PN ---
Subjective Progress Note Date: 08/15/20 Principal diagnosis: CoVID 19 pneumonitis This is a 65-year-old male, there hasn't been feeling well for at least 2 weeks. He complains initially of fatigue, weakness, joint pain, and anorexia. The patient is awake, he is complaining about being short of breath. The patient's appetite has been poor. He has not been really eating or drinking very much at all. The patient was in ER, room #1 when I saw him. He was not receiving any IV fluids. He was on O2 at 3 L by nasal cannula. Again not receiving any IV fluids. Used to see a doctor in the area but has not seen a doctor for some time. He is otherwise pretty healthy. He was seen in the emergency room by Dr. Elena. White count was 3.69, hemoglobin 15, hematocrit 45.4, and platelet count 142,000. D-dimer was 1.01. PT, INR, and PTT were normal. Sodium 133, potassium 5.2, chloride 97, CO2 28, anion gap 8, BUN 45, and creatinine 1.7. The patient's C-reactive protein was 57.2. He tested positive for calvillo virus on August 09. Chest x-ray showed bilateral multifocal infiltrates consistent with the diagnosis of COVID 19 pneumonia. Computed tomography scan showed typical findings with diffuse bilateral groundglass opacities. There was no acute pulmonary embolism. Progress note dated 08/11/2020. 65-year-old male, that we saw yesterday in consultation. He complained of 2 weeks with increasing shortness of breath, fatigue, weakness, joint pain, and anorexia. Currently, the patient's on 4 L nasal cannula. He's not receiving any IV fluids. He is short of breath. He states he feels more short of breath today than he did yesterday. The patient currently does not have a primary care physician. There is no new laboratory data on this patient today. Computed tomography scan showed typical findings with diffuse bilateral groundglass opacities. There is no evidence of pulmonary embolism. The patient is seen today 08/12/2020 in follow-up on the regular medical floor. He is currently sitting up in bed. Awake and alert in no acute distress. He is on 6 L high flow nasal cannula and maintaining O2 saturation in the 90s. Doing a bit better today compared to yesterday. Still dyspneic with minimal exertion. He is continued on Decadron, Lovenox, vitamin supplements. The patient is seen today 08/13/2020 in follow-up on the regular medical floor. He is currently sitting up in bed. Awake and alert in no acute distress. Breathing a bit easier today compared to yesterday. Still with some nonproductive cough. He is on 6 L high flow nasal cannula. Chest x-ray continues to show bilateral patchy infiltrates. He is afebrile. Hemodynamically stable. White count 7.8. Hemoglobin 16.7. Lymphocytes 1.05. D-dimer 0.95. Sodium 138. Potassium 5.3. Creatinine 1.21. The patient is seen today 08/14/2020 in follow-up on the regular medical floor. He is currently sitting up at the bedside. Awake and alert in no acute distress. He is breathing a bit better today compared to yesterday. He is still on 6 L high flow nasal cannula to maintain O2 saturations in the 90s. He remains on Decadron, Lovenox, vitamin supplements. Glucose 80. The patient is seen today 08/15/2020 in follow-up on the regular medical floor. He is currently sitting up in a chair at the bedside. Awake and alert in no acute distress. Currently on 5 L high flow nasal cannula to maintain O2 sat urations in the 90s. He is on dexamethasone, Lovenox, vitamin supplements. White count 7.9. Hemoglobin 15.5. Sodium 136. Potassium 4.3. Creatinine 1.1. AST 77, ALT 135. Objective - Vital Signs Vital signs: Vital Signs Temp 98.4 F 08/15/20 14:17 Pulse 65 08/15/20 14:17 Resp 16 08/15/20 14:17 BP 122/79 08/15/20 14:17 Pulse Ox 95 08/15/20 14:17 Intake & Output 08/14/20 08/15/20 08/15/20 18:59 06:59 18:59 Intake Total 200 240 Balance 200 240 Intake: Oral 200 240 Other: Voiding Method Urinal Urinal # Voids 3 1 - Exam GENERAL EXAM: Alert, pleasant 65-year-old gentleman, on 5 L high flow nasal cannula, comfortable in no apparent distress. HEAD: Normocephalic. EYES: Normal reaction of pupils, equal size. NOSE: Clear with pink turbinates. THROAT: No erythema or exudates. NECK: No masses, no JVD. CHEST: No chest wall deformity. LUNGS: Equal air entry with coarse crackles in the bilateral bases CVS: S1 and S2 normal with no audible murmur, regular rhythm. ABDOMEN: No hepatosplenomegaly, normal bowel sounds, no guarding or rigidity. SPINE: No scoliosis or deformity SKIN: No rashes CENTRAL NERVOUS SYSTEM: No focal deficits, tone is normal in all 4 extremities. EXTREMITIES: There is no peripheral edema. No clubbing, no cyanosis. Peripheral pulses are intact. - Labs CBC & Chem 7: 08/15/20 07:49 08/15/20 07:49 Labs: Abnormal Lab Results - Last 24 Hours (Table) 08/15/20 08/15/20 Range/Units 07:49 07:49 Immature Gran # 0.06 H (0.00-0.04) X 10*3/uL BUN 30.0 H (9.0-27.0) mg/dL BUN/Creatinine Ratio 27.27 H (12.00-20.00) Ratio Glucose 118 H (70-110) mg/dL AST 77 H (14-35) U/L ALT 135 H (10-49) U/L Albumin/Globulin Ratio 1.38 L (1.60-3.17) g/dL Assessment and Plan Assessment: 1 Acute hypoxemic respiratory failure secondary to CoVID 19 pneumonia/pneumonit is. Outside the window for Remdesivir 2 History of bilateral knee surgery 3 Lifelong nonsmoker. Plan: The patient was seen and evaluated by Dr. Bergman Continue Lovenox, Decadron, vitamin supplements May require home oxygen We will continue to follow I, the cosigning physician, performed a history & physical examination of the patient. Lungs sounds with crackles in the posterior bases. Maintaining good O2 saturations in the 90s on 5 liters high flow nasal cannula. I discussed the assessment and plan of care with my nurse practitioner, Andree Stoo. I attest to the above note as dictated by her.
[2020-08-15] MEDS: SODIUM CHLORIDE 0.9% 1,000 ML IV SCH (17:41)
[2020-08-16] MEDS: CHOLECALCIFEROL 25 MCG (1000 IU) TABLET PO SCH (08:33)
[2020-08-16] MEDS: ZINC SULFATE 220 MG CAP PO SCH (08:34)
[2020-08-16] MEDS: amLODIPine 5 MG TAB PO SCH (08:34)
[2020-08-16] MEDS: PANTOPRAZOLE 40 MG/10 ML VIAL IV SCH (08:34)
[2020-08-16] MEDS: ASPIRIN 81 MG PO SCH (08:34)
[2020-08-16] MEDS: ASCORBIC ACID 500 MG TAB PO SCH (08:34)
[2020-08-16] MEDS: DEXAMETHASONE SOD PHOSPHATE 10 MG/ML 1 ML VIAL IV SCH (08:34)
[2020-08-16] MEDS: ENOXAPARIN 40 MG/0.4 ML SYRINGE SQ SCH (08:35)
[2020-08-16 09:08] LABS: HCT 46.1 % (39.6-50.0); HGB 15.6 g/dL (13.0-17.0); MCH 29.4 pg (27.0-32.0); MCHC 33.8 g/dL (32.0-37.0); MCV 86.8 fL (80.0-97.0); Mean Platelet Volume 11.2 fL (9.5-12.2); Platelet Count 338 X 10*3/uL (140-440); RBC 5.31 X 10*6/uL (4.40-5.60); WBC 7.32 X 10*3/uL (4.50-10.00)
[2020-08-16 10:05] VITALS: BP 131/82; PULSE 71; RESP 14; TEMP 98.2
[2020-08-16 10:25] LABS: African American GFR (CKD) 72.6 (60.0-200.0); Calcium 9.4 mg/dL (8.7-10.3); Magnesium 2.4 mg/dL (1.5-2.4); Non-African American GFR(CKD) 62.6 (60.0-200.0); Potassium 4.7 mmol/L (3.5-5.5)
--- NOTE | 2020-08-16 12:36 | P.DS ---
<Marc Villalobos - Last Filed: 08/16/20 12:35> Providers Expected date of discharge: 08/16/20 Hospital Course: Discharge Diagnosis: Acute respiratory failure with hypoxia secondary to Covid 19 pneumonia, discharged home on 3 L O2. Transaminitis, improved Acute kidney injury, improved Hyponatremia, resolved Incidental finding on radiologic examination: CTA of chest revealed an Incidental finding of a 4 mm right middle lobe lung nodule Hospital Course: Patient is a 65-year-old male with no known reported past medical history. He is currently admitted under our services with consult to pulmonology after presenting to the hospital on 08/09/20 with a chief complaint of shortness of breath and found to be in acute respiratory distress with hypoxia requiring oxygen supplementation to maintain SpO2 greater than 90%. His Covid 19 PCR resulted positive. Initial Chest X-ray was positive for bilateral infiltrates. CTA showing bilateral diffuse patchy groundglass opacities, consistent with history of Covid pneumonia with Incidental 4 mm right middle lobe nodule which will need follow-up in 6 months. EKG showing normal sinus rhythm at 81 bpm with T-wave inversion in inferior leads III and aVF and V1. Repeat chest x-ray was obtained on 08/13/20 revealing persistent bilateral airspace disease correlating for pneumonia. Patient's oxygen requirements have titrated down over the past couple days. Patient has been very eager to return home and has been compliant with prone positioning and working hard to decrease O2 needs below 4 L as we previously discussed. Patient maintained SpO2 greater than 93% on 4 L 12 hours and this morning he is doing great on 3 L O2 with SpO2 maintaining at 94-95%. Home oxygen has been delivered from [employer]. Pt has been cleared by pulomonologist, Dr. Bergman whom recommended patient to follow-up outpatient in his office in 3 weeks. Patient being discharged home on Decadron 3 more days for a total of 7 days of steroids as well as vitamin C, vitamin D, zinc, and melatonin. Patient instructed on importance of obtaining an following up with a PCP. Patient reports he used to follow Dr. Olmos but that his follows with Dr. Ray, patient states he will let his decide in the morning who to call to set up a postdischarge follow-up appointment. Patient stable for discharge home on home oxygen at 3 L at this time. Patient to follow-up with PCP of his choice later this week and business development consultant in 3 weeks. Patient also educated on incidental finding and CTA and understanding that he will need follow-up with business development consultant for repeat CT. Physical exam: Patient seen and examined at bedside this morning. He was doing great. Patient on 3 L O2 with SpO2 maintaining between 94-95%. He denies having any shortness of breath, chest pain, palpitations, or dyspnea with exertion. Patient very eager and excited to be discharged home. All questions answered and patient denied having any further needs, questions, or concerns. Patient being discharged home on oxygen, declined home care stating his is able to help him with anything he needs. General: non toxic, no distress, appears at stated age. Derm: warm, dry Head: atraumatic, normocephalic, symmetric Eyes: EOMI, no lid lag, anicteric sclera Mouth: no lip lesion, mucus membranes moist Cardiovascular: S1S2 normal with regular rate and rhythm. no murmur, gallop, or rub. positive posterior tibial pulses bilaterally. Cap refill less than 2 seconds. Lungs: Respirations even, regular, and unlabored on 3 L high flow nasal cannula with SpO2 of 95%. Lungs with good and equal air movement throughout with soft crackles at bases. Abdominal: soft, nontender to palpation, no guarding, no appreciable organomegaly Ext: no gross muscle atrophy, no edema, no contractures Neuro: CN II-XI grossly intact, no focal neuro deficits Psych: Alert, oriented, appropriate affect A total of 45 minutes of time were spent preparing this complex discharge summary. Patient Condition at Discharge: Fair Plan - Discharge Summary Discharge Rx Participant: No New Discharge Prescriptions: New Dexamethasone [Decadron] 6 mg PO DAILY 3 Days #3 tablet Melatonin 5 mg PO HS PRN 30 Days #30 tablet PRN Reason: Insomnia Zinc Sulfate [Orazinc] 220 mg PO DAILY 30 Days #30 cap Ascorbic Acid [Vitamin C] 1,000 mg PO DAILY 30 Days #30 tab Cholecalciferol [Vitamin D3 (25 Mcg = 1000 Iu)] 100 mcg PO DAILY 30 Days #30 tablet Dexamethasone 6 mg PO DAILY #8 tablet Continue Aspirin EC [Ecotrin Low Dose] 81 mg PO DAILY amLODIPine [Norvasc] 5 mg PO DAILY Discontinued Azithromycin [Zithromax] 500 mg PO DAILY Hydroxychloroquine Sulfate [Plaquenil] 200 mg PO BID Discharge Medication List Dexamethasone 6 mg PO DAILY #8 tablet 08/10/20 [Rx] Aspirin EC [Ecotrin Low Dose] 81 mg PO DAILY 08/11/20 [History] amLODIPine [Norvasc] 5 mg PO DAILY 08/11/20 [History] Ascorbic Acid [Vitamin C] 1,000 mg PO DAILY 30 Days #30 tab 08/16/20 [Rx] Cholecalciferol [Vitamin D3 (25 Mcg = 1000 Iu)] 100 mcg PO DAILY 30 Days #30 tablet 08/16/20 [Rx] Dexamethasone [Decadron] 6 mg PO DAILY 3 Days #3 tablet 08/16/20 [Rx] Melatonin 5 mg PO HS PRN 30 Days #30 tablet 08/16/20 [Rx] Zinc Sulfate [Orazinc] 220 mg PO DAILY 30 Days #30 cap 08/16/20 [Rx] Follow up Appointment(s)/Referral(s): [facility],Equipment [NON-STAFF] - (*[facility] will deliver a portable oxygen tank to the bedside before discharge. Please call them to arrange delivery of the oxygen concentrator once home) Jerzy Whalen, [Doctor of Osteopathic Medicine] - 3 Weeks None,Stated [Primary Care Provider] - 1-2 days (PT reports he will call tomorrow morning and make an appointment with Dr. Olmos or Dr. Ray tommorrow morning. He states he used to see Dr. Jensen but his 's PCP is Dr. Ray so he will discuss with his today and determine who she wants him to see and call and make appointment tomorrow morning for sometime this week. ) Patient Instructions/Handouts: Coronavirus Disease 2019 (COVID-19), Using Oxygen at Home (DC), Pulse Oximetry (DC) Activity/Diet/Wound Care/Special Instructions: Activity: As tolerated, it is important to remember to take things slow and steady. Do not try and edwards things. Take breaks often. Diet: Heart healthy diet Special Instructions: As we have been discussing, you are being sent home on home on 3L oxygen. It is important to wear this at all times until you are further weaned down by your business development consultant, Dr. Whalen. It is important to call Dr. Whalen's office first thing tomorrow morning and set up and appointment as he requested in 3 weeks so he can closely monitor your progression. After you discuss with your which PCP you have chosen to follow please call first thing in the morning and set up an appointment to see them this week for post hospital follow up. As we discussed you will need a repeat chest CT with business development consultant. Thank you for allowing us to participate in your care!! Discharge Disposition: HOME SELF-CARE <Marina Lazo - Last Filed: 08/16/20 14:26> Providers Date of admission: 08/09/20 17:45 Attending physician: Lauren Howell MD Consults: 08/09/20 17:44 Consult Physician Routine Consulting Provider: Jean-Pierre Buenrostro Consult Reason/Comments: covid 19, hypoxic respiratory failure Do you want consulting provider notified?: Yes Primary care physician: Stated None Hospital Course: I discussed the care with Marc Villalobos NP and reviewed the findings and plan as documented in the note above. I did not staff this patient on this date.
== END 2020-08-16 11:25 | disposition home or self-care (01) | DRG 871 ==
LOC: EC 15:36 → 4SSUR 17:45 → UNDODISIN 08-11 07:32 → 4SSUR 08-11 18:49 → 2ORMAIN 08-12 22:40 → 4SSUR 08-12 22:40
PROVIDERS: ADMIT Internal Medicine; ATTEND Internal Medicine
PROC: 5A0945A Assistance with Respiratory Ventilation, 24-96 Consecutive Hours, High Flow/Velocity Cannula (ICD-10-PCS; principal; 2020-08-12)
PROC: 5A0935A Assistance with Respiratory Ventilation, Less than 24 Consecutive Hours, High Flow/Velocity Cannula (ICD-10-PCS; 2020-08-16)
DX: A41.89 Other specified sepsis (principal); U07.1 COVID-19; J12.82 Pneumonia due to coronavirus disease 2019; J96.01 Acute respiratory failure with hypoxia; E87.1 Hypo-osmolality and hyponatremia; N17.9 Acute kidney failure, unspecified; E86.0 Dehydration; R74.01 Elevation of levels of liver transaminase levels
CPT/HCPCS: 36415; 71045; 71275; 80048; 80053; 83605; 83615; 83735; 84100; 84484; 85025; 85027; 85379; 85610; 85730; 86140; 87635; 93005; 94760; 96374; 99285

== ENCOUNTER 2020-11-26 14:46 | Emergency (ER) | payer MEDICARE ==
[2020-11-26 14:52] VITALS: BP 160/96; PULSE 78; RESP 20; TEMP 98.4
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
--- NOTE | 2020-11-26 16:56 | XR ---
EXAMINATION TYPE: XR wrist complete LT, XR hand complete LT DATE OF EXAM: 11/26/2020 COMPARISON: NONE HISTORY: . Fall, pain. TECHNIQUE: AP, oblique, and lateral views of the left hand. AP, oblique, lateral, and scaphoid views of the left wrist. FINDINGS: There is a thin linear 5 mm radiopaque density of the volar distal forearm, approximately 12 mm deep to the skin. There are degenerative changes involving the distal and proximal interphalangeal joints diffusely. There is soft tissue swelling at the third digit PIP joint, in the region of the most aamir re degenerative change. No acute fracture. No acute dislocation. IMPRESSION: 1. No acute fracture or dislocation of the left hand or left wrist. 2. Soft tissue swelling of the third digit at the PIP joint. Differential includes posttraumatic seq uela versus degenerative change. 3. 5 mm linear radiopaque foreign body of the distal volar forearm.
== END 2020-11-26 17:37 | disposition home or self-care (01) ==
LOC: EC 14:46
DX: S63.502A Unspecified sprain of left wrist, initial encounter (principal); I10 Essential (primary) hypertension; M17.0 Bilateral primary osteoarthritis of knee; Z79.82 Long term (current) use of aspirin; Z79.52 Long term (current) use of systemic steroids; Z83.3 Family history of diabetes mellitus; Z96.653 Presence of artificial knee joint, bilateral; V28.4XXA Motorcycle driver injured in noncollision transport accident in traffic accident, initial encounter; Y92.410 Unspecified street and highway as the place of occurrence of the external cause
CPT/HCPCS: 99284

== ENCOUNTER → 2021-06-15 | Outpatient (CLI) | payer MEDICARE ==
--- NOTE | 2021-06-16 07:01 | CT ---
EXAMINATION TYPE: CT chest w con DATE OF EXAM: 06/15/2021 COMPARISON: CTA chest August 09, 2020 HISTORY: h/o covid, f/u lung nodule CT DLP: 459.5 mGycm. Automated Exposure Control for Dose Reduction was Utilized. TECHNIQUE: CT scan of the thorax is performed following with IV Contrast, patient injected with 80 m L of Isovue 300. FINDINGS: LUNGS: Interval resolution of bilateral multifocal groundglass opacities and organizing consolidation s. Confirmation of residual 5 x 4 mm anterior right lower lung nodule axial image 41 alignment to a a ministerio of linear scarring on the coronal images favor postinflammatory. No suspicious greater than 5 mm pulmonary nodules or masses. There is no pleural effusion or pneumothorax seen. The tracheobronchial tree is patent. MEDIASTINUM: There are no greater than 1 cm hilar or mediastinal lymph nodes. No cardiomegaly or pe ricardial effusion is seen. Mild coronary artery calcification is seen. OTHER: Mild multilevel spurring in the spine.. IMPRESSION: Interval complete resolution of bilateral covid ground glass opacities and consolidations . Mild scattered residual linear scarring is present. There is less prominent 5 x 4 mm anterior right lower lung nodule favoring postinflammatory etiology.
== END | disposition home or self-care (01) ==
LOC: RADCTMAIN 17:02
PROVIDERS: ATTEND Internal Medicine Critical Care Medicine
DX: R91.1 Solitary pulmonary nodule (principal); R91.8 Other nonspecific abnormal finding of lung field; Z86.16 Personal history of COVID-19
CPT/HCPCS: 82565; 84520; 71260; 36415; Q9967